=== PATIENT | male | born 1945 | race Caucasian/White ===

== ENCOUNTER → 2017-09-09 | Outpatient (CLI) | payer BC ==
[~2017-09-09] MED LIST: AMLODIPINE BESY10 MG PO; ASPIRIN81 MG PO; COQ-10100 MG PO; CRESTOR10 MG PO; GLIMEPIRIDE2 MG PO; HYDROCODON-ACE1 EA10; IOPAMIDOL 370 MG/ML 200 ML INFUS..BTL INJ ONE; LANSOPRAZOLE30 MG; LISINOPRIL40 MG PO; LOSARTAN POTAS100 MG PO; NIACIN500 MG; PLAVIX75 MG PO; RANEXA500 MG PO; SODIUM CHLORIDE 0.9% 250ML 500 ML ONE; SODIUM CHLORIDE 0.9% 50ML 50 ML ONE; SYMBICORT 16010.2 GM INH; TOPROL XL25 MG PO; VITAMIN E400 UNI1; XARELTO20 MG PEG
[2017-09-09 10:17] LABS: CREATININE, SERUM 1.32 mg/dL (0.72-1.25)
--- NOTE | 2017-09-09 12:38 | Diagnostic Imaging Report ---
PROCEDURE:CT CHEST WITHOUT CONTRAST COMPARISON:[facility], CT, CT ABDOMEN/PELVIS WO, 03/16/2017, 13:28. [facility], CT, CT CHEST W, 11/15/2013, 18:55. INDICATIONS:LOW DOSE NODULES TECHNIQUE:CT images were created without the administration of contrast material utilizing low dose CT chest protocol. DLP: 247.3 mGY-cm FINDINGS: LUNGS:Diffuse hyperinflation is re-demonstrated with fibrotic changes in apical to basilar gradient. There has been some progression of the fibrosis compared to previous exam. Nodules: Right lung: Smoothly marginated noncalcified nodule in the base of the right lower lobe measures 1.4 x 1.4 cm (in 2014, 1.3 cm; in 2017, 1.4 x 1.4 cm (personal measurements)). No satellite nodules. Groundglass subpleural focus in the posterior upper lobe is new (image 39) and measures 5 mm. Left lung: There are calcified granulomata throughout. Subpleural calcified nodule in the anterobasal segment of the left lower lobe measures 8 x 7 mm and is stable. Calcified granulomata along the major fissure are stable. Two pleural nodules in the upper lobe (images 22 and 21) measure up to 2 mm and are stable. Airways: Mild cylindrical bronchiectasis and mild bronchial wall thickening suggestive of chronic bronchitis. The airways are patent. VASCULATURE:The aorta is ectatic with diffuse atherosclerotic calcifications. The ascending aorta measures 4.2 x 3.8 cm (previously 3.6 x 3.6 cm). The descending thoracic aorta measures 4.0 x 4.0 cm (previously, 3.7 x 3.7 cm). The main pulmonary artery measures 2.3 cm in diameter. MEDIASTINUM/JUAN MIGUEL:Calcified mediastinal and hilar lymph nodes are present. Noncalcified mediastinal lymph nodes are increased in number but stable in appearance. The esophagus is normal. CARDIAC:Cardiac bypass changes are stable. Pacemaker wires terminate in the right atrium and right ventricle. No pericardial effusion. PLEURA:No pleural thickening or pleural effusion. A tiny pleural calcification in the left upper lobe is stable. CHEST WALL:No axillary lymphadenopathy. Visualized portion of the thyroid gland is normal. LIMITED ABDOMEN:Visualized portions demonstrate calcifications throughout the liver and spleen. There are diverticula in the left colon. A stent in the suprarenal abdominal aorta is incompletely imaged. Low attenuating lesion in the right kidney is stable and suggestive of a cyst. This measures approximately 3 cm. BONES:Median sternotomy is well healed. There degenerative changes of the spine consistent with age. Fusion plate in the lower cervical spine is incompletely imaged but within normal limits. No compression deformities. There are no lytic or blastic lesions. CONCLUSION: 1. Noncalcified nodule the base of the right lower lobe is stable to 1 mm larger since 2014. Continued annual or biennial surveillance is recommended. 2. Mild progression of pulmonary fibrosis, particularly at the lung bases. 3. New noncalcified nodule in the right upper lobe may be inflammatory. 4. Healed granulomatous inflammation. Noncalcified mediastinal lymph nodes are stable. 5. Thoracic aortic aneurysm measuring 4 cm in maximum diameter. Stable postoperative changes in the mediastinum. Aortic endograft in the suprarenal abdominal aorta. Dictated by: Brandi Padilla M.D. on 09/09/2017 at 12:39 Electronically approved by: Brandi Padilla M.D. on 09/09/2017 at 12:39
--- NOTE | 2017-09-09 12:45 | Diagnostic Imaging Report ---
EXAM: CTA Abdomen and Pelvis WITH AND WITHOUT CONTRAST. DATE: 09/09/2017 9:54 AM INDICATION: Aneurysm COMPARISON: 03/16/2017 and 06/04/2015 CT scans TECHNIQUE: CT angiogram of the abdomen and pelvis was obtained before and after the administration of IV contrast. Prospective gating was performed. Images reviewed in the axial, coronal, and sagittal planes. 3D reconstructions performed on off-line workstation. IV Contrast: 100 mL Isovue-370. Total DLP: 1257 mGy*cm Est. Eff. Dose DLP x 0.015 x size factor mSv (CTDIvol has been reviewed and is below limits set by [facility]). FINDINGS: VASCULAR: Abdominal Aorta Mesenteric Segment: 27 mm. Abdominal Aorta Just Below Renal Arteries: 25 mm. Mid Infrarenal Abdominal Aorta: Excluded aneurysmal sac 45 mm with 26 mm enhanced luminal diameter. Abdominal Aortal at Bifurcation: Excluded aneurysmal sac 50 mm. Postsurgical change: Stable endovascular stent in the mesenteric/renal aorta. Stable aortobiiliac stent. Grafts are patent. No endoleak identified. When measured in similar location, no change in excluded aneurysm sac. Mesenteric Arteries: Mild narrowing origin celiac trunk and SMA. Dual right and single left renal arteries patent. 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 Common iliac arteries: Patent. Internal Iliac Arteries: Advanced atherosclerotic changes and diminutive size limits evaluation. Abdomen: Lung Bases: Septal thickening. 14 mm nodule right lung base stable. Granuloma left lung base stable. Solid Organs: Hepatic and splenic granulomata. Perinephric stranding presumed senescent. Renal cyst again noted. Remainder of solid organs unremarkable. Upper GI Tract: Gastric decompression limits adequate evaluation. No small bowel obstructive changes. Lymph Nodes: No suspicious adenopathy. Other: None. Pelvis: Bladder: Unremarkable. Other: Heterogeneous prostate with coarse calcifications. Prostate enlarged 58 mm. Colon: Scattered diverticula with no CT evidence of diverticulitis. Appendix not inflamed. Bones: Degenerative changes spine. IMPRESSION: 1. Patent stent within the mesenteric/renal aorta and stable aortobiiliac stent graft. No occlusion. 2. Stable excluded aneurysmal sac in the infrarenal abdominal aorta with no evidence of endoleak. 3. Enlarged heterogeneous prostate. Clinical and laboratory correlation recommended. 4. Diverticulosis. 5. 14 mm nodule right lung base, stable. 6. Septal thickening lung bases, which can be seen in the setting of volume overload. 7. Evidence of prior granulomatous disease. Signed by: Dr. Malik Tripathi MD on 09/09/2017 12:41 PM
== END ==
LOC: CT 09:38
PROVIDERS: ATTEND Family Medicine
DX: I72.2 Aneurysm of renal artery (principal); R10.84 Generalized abdominal pain; R91.1 Solitary pulmonary nodule; Z87.891 Personal history of nicotine dependence
CPT/HCPCS: 36415; 71250; 74174; 82565; 84520; J7050; Q9967

== ENCOUNTER 2018-03-18 10:45 | Observation (INO) | payer BC ==
[2018-03-17 13:01] LABS: BASOPHILS # (AUTO) 0.1 (0.0-0.1); BASOPHILS % 0.8 % (0.0-1.0); EOSINOPHILS # (AUTO) 0.2 (0.0-0.4); HEMATOCRIT 38.5 % (38.2-49.6); HEMOGLOBIN 12.3 g/dL (14.0-18.0); LYMPHOCYTES # (AUTO) 2.1 (1.0-3.2); LYMPHOCYTES % 32.1 % (18.0-39.1); MEAN CORPUSCULAR HEMOGLOBIN 25.7 pg (28-32); MEAN CORPUSCULAR HGB CONC 31.9 g/dL (31-35); MEAN CORPUSCULAR VOLUME 80.5 fL (81-99); MONOCYTES # (AUTO) 0.6 (0.2-0.8); MONOCYTES % 8.8 % (4.4-11.3); NEUTROPHILS # (AUTO) 3.6 (2.1-6.9); NEUTROPHILS % 54.8 % (38.7-80.0); PLATELET COUNT 197 x10e3/uL (140-360); RED BLOOD COUNT 4.78 x10e6/uL (4.3-5.7); RED CELL DISTRIBUTION WIDTH 16.1 % (11.7-14.4)
[2018-03-17 13:23] LABS: ALBUMIN 3.7 g/dL (3.5-5.0); CALCIUM 9.5 mg/dL (8.4-10.2); CREATININE, SERUM 1.32 mg/dL (0.72-1.25)
[~2018-03-18] VITALS: Ht 172.7 cm; Wt 94.9 kg
[2018-03-18] VITALS (13 sets, daily range): BP systolic 122–180; BP diastolic 63–94
[~2018-03-18 10:45] MED LIST changes: +HEPARIN SOD/SOD CHLORIDE 2,000 ML ONE; +LIDOCAINE HCL 2% LOCAL 20 ML VIAL ONE; +SODIUM CHLORIDE 0.9% 1000ML 1,000 ML ONE; -SODIUM CHLORIDE 0.9% 250ML 500 ML ONE; -SODIUM CHLORIDE 0.9% 50ML 50 ML ONE; -XARELTO20 MG PEG; +XARELTO20 MG PO
[2018-03-18] MEDS ORDERED: METOPROLOL SUCC50 MG PO (11:53)
[2018-03-18] MEDS ORDERED: GABAPENTIN300 MG PO (11:53)
[2018-03-18] MEDS ORDERED: CLOPIDOGREL75 MG PO (11:53)
[2018-03-18] MEDS ORDERED: TAMSULOSIN HCL0.4 MG PO (11:53)
[2018-03-18] MEDS ORDERED: ISOSORBIDE MONO30 MG PO (11:53)
[2018-03-18] MEDS ORDERED: LANSOPRAZOLE30 MG PO (11:53)
[2018-03-18] MEDS ORDERED: MULTIVITAMINS1 EAC8 PO (11:53)
[2018-03-18] MEDS ORDERED: FENTANYL CITRATE/PF 100MCG/2 ML INJ ONE (12:50)
[2018-03-18] MEDS ORDERED: MIDAZOLAM HCL 2 MG/2 ML VIAL ONE ×2 (12:50→13:07)
[2018-03-18] MEDS ORDERED: DIPHENHYDRAMINE HCL 25 MG CAP ONE (13:08)
[2018-03-18] MEDS ORDERED: ALPRAZOLAM 0.5 MG TAB ONE (13:08)
[2018-03-18] MEDS ORDERED: NITROGLYCERIN/D5W 200 MCG/ML 250 ML ONE (13:29)
[2018-03-18] MEDS ORDERED: HEPARIN SOD (PORCINE) 1000 UNIT/ML 30ML ONE (13:29)
[2018-03-18] MEDS ORDERED: IOPAMIDOL 370 MG/ML 200 ML INFUS..BTL INJ ONE ×2 (13:31→13:59)
[2018-03-18] MEDS ORDERED: TICAGRELOR 90 MG TABLET ONE (13:49)
[2018-03-18] MEDS ORDERED: SODIUM CHLORIDE 0.9% 1000ML 1,000 ML ONE (14:06)
[2018-03-18] MEDS ORDERED: MORPHINE SULFATE 2 MG/ML SYR ONE ×2 (14:38→17:47)
[2018-03-18] MEDS ORDERED: ATROPINE SULFATE 0.1 MG/ML 10ML SYR ONE (18:04)
[2018-03-19] VITALS: BP 172/82
[2018-03-19] MEDS ORDERED: DEXTROSE 50% SYRINGE 50 ML IV PRN (03:30)
[2018-03-19 04:00] VITALS: BP 180/84
[2018-03-19 08:11] VITALS: BP 166/87
[2018-03-19 08:20] VITALS: BP 166/87
[2018-03-19] MEDS ORDERED: ASPIRIN 325 MG TAB PO SCH (09:00)
[2018-03-19] MEDS ORDERED: TICAGRELOR 90 MG TABLET PO SCH (09:00)
[2018-03-19] MEDS ORDERED: ASPIRIN 81 MG ENTERIC COATED PO SCH (09:00)
[2018-03-19] MEDS ORDERED: ASPIR 8181 MG PO (10:03)
[2018-03-19] MEDS ORDERED: INSULIN REGULAR, HUMAN 100 UNIT/1 ML 3ML VIAL SQ SCH (11:30)
--- OUTSIDE RECORDS SUMMARY | 2018-03-30 10:37 | XMS REPORT | Summary of Care ---
Author Author [facility] Organization [facility] Address Unknown Phone Unavailable Encounter ARNALDO Bourne(OLENA) [id number] Date(s): 11/19/16 - 11/20/16 [facility] [address] [place] [address]- Discharge Disposition: Home or Self Care Attending Physician: Chuck Clark MD Admitting Physician: Chuck Clark MD Referring Physician: Chuck Clark MD Vital Signs 1 2 3 Most recent to oldest [Reference Range]: 175.26 cm (11/17/16 10:46 AM) Height 98.1 DegF (11/20/16 8:00 AM) 98 DegF (11/20/16 4:00 AM) 97.9 DegF (11/20/16 12:00 AM) Temperature Oral [96.4-99.1 DegF] 147/79 mmHg *HI* (11/20/16 8:00 AM) 144/60 mmHg *HI* (11/20/16 4:00 AM) 142/63 mmHg *HI* (11/20/16 12:00 AM) Blood Pressure [90-140/60-90 mmHg] 20 BRMIN (11/20/16 8:00 AM) 20 BRMIN (11/20/16 4:00 AM) 20 BRMIN (11/20/16 12:00 AM) Respiratory Rate [14-20 BRMIN] 86 bpm (11/20/16 8:00 AM) 82 bpm (11/20/16 4:00 AM) 70 bpm (11/20/16 12:00 AM) Peripheral Pulse Rate [60-100 bpm] 94.591 kg (11/17/16 10:46 AM) Weight 30.8 m2 (11/17/16 10:46 AM) Body Mass Index Problem List Condition Effective Dates Status Health Status Informant AP (angina Active pectoris)(Confirmed) CAD (coronary artery Active disease)(Confirmed) Diabetes(Confirmed) Active SOB (shortness of Active breath)(Confirmed) H/O sinus Resolved tachycardia(Confirme d) Jaw pain, Active non-TMJ(Confirmed) Apnea, Active sleep(Confirmed) Allergies, Adverse Reactions, Alerts Substance Reaction Severity Status NKDA Active Medications ATTN RN please bring pt home med to pharmacy to be labeled ATTN RN please bring pt home med to pharmacy to be labeled, ATTN RN, Drug form: MISC, Route: MISC, QSHIFT, 11/18/16 16:00:00 CDT, Duration: 30 day, Stop date: 12/18/16 8:00:00 CDT Start Date: 11/18/16 Stop Date: 11/20/16 Status: Discontinued acetaminophen-codeine #3 1 tab, Route: PO, Drug Form: TAB, Dosing Weight 94.591, kg, Q4H, PRN Pain Score 4-6, Start date: 11/19/16 14:41:00 CDT, Duration: 30 day, Stop date: 12/19/16 14 :40:00 CDT Notes: Do not exceed 4gm/day of acetaminophen. (Same as: Tylenol with Codeine # 3) Start Date: 11/19/16 Stop Date: 11/20/16 Status: Discontinued acetaminophen-hydrocodone 325 mg-5 mg oral tablet 1 tab, Route: PO, Drug Form: TAB, Dosing Weight 94.591, kg, Q4H, PRN Pain Score 4-6, Start date: 11/18/16 8:32:00 CDT, Duration: 30 day, Stop date: 12/18/16 8:3 1:00 CDT Notes: (Same as: [place] 325/5) Do not exceed 4gm/day of acetaminophen. Start Date: 11/18/16 Stop Date: 11/20/16 Status: Discontinued amLODIPine 10 mg, 2 tab, Route: PO, Drug form: TAB, Daily, Dosing Weight 94.591, kg, Start date: 11/18/16 9:00:00 CDT, Duration: 30 day, Stop date: 12/17/16 9:00:00 CDT Notes: (Same as: Norvasc) Start Date: 11/18/16 Stop Date: 11/20/16 Status: Discontinued amLODIPine 10 mg oral tablet 10 mg=1 tab, PO, Daily, # 30 tab, 0 Refill(s) Start Date: 11/17/16 Status: Ordered aspirin 81 mg tablet, enteric coated 81 mg, 1 tab, Route: PO, Drug form: ECTAB, Daily, Dosing Weight 94.591, kg, Star t date: 11/18/16 9:00:00 CDT, Duration: 30 day, Stop date: 12/17/16 9:00:00 CDT Notes: Do not crush or chew.(Same As: Ecotrin) Start Date: 11/18/16 Stop Date: 11/20/16 Status: Discontinued aspirin 81 mg tablet, enteric coated 81 mg=1 tab, PO, Daily, # 90 tab, 3 Refill(s) Start Date: 11/17/16 Status: Ordered ceFAZolin 1 gm, 100 mL, Route: IVPB, Drug form: INJ, Q8H, Dosing Weight 94.591, kg, Start date: 11/19/16 21:00:00 CDT, Duration: 1 doses or times, Stop date: 11/19/16 21: 00:00 CDT, ABX Indication: Surgical Prophylaxis Start Date: 11/19/16 Stop Date: 11/19/16 Status: Completed clopidogrel 75 mg oral tablet 75 mg=1 tab, PO, Daily, # 30 tab, 0 Refill(s) Start Date: 11/20/16 Status: Ordered CoQ10 300 mg, PO, Daily, 0 Refill(s) Start Date: 11/17/16 Status: Ordered Crestor 40 mg, 2 tab, Route: PO, Drug form: TAB, Bedtime, Dosing Weight 94.591, kg, Star t date: 11/18/16 21:00:00 CDT, Duration: 30 day, Stop date: 12/17/16 21:00:00 CD T Notes: Same as Crestor Start Date: 11/18/16 Stop Date: 11/20/16 Status: Discontinued Crestor 20 mg oral tablet 20 mg=1 tab, PO, Bedtime, # 30 tab, 0 Refill(s) Start Date: 11/17/16 Stop Date: 11/20/16 Status: Discontinued Crestor 40 mg oral tablet 40 mg=1 tab, PO, Bedtime, # 30 tab, 1 Refill(s) Start Date: 11/20/16 Status: Ordered Crestor 40 mg oral tablet 40 mg=1 tab, PO, Bedtime, # 30 tab, 0 Refill(s) Start Date: 11/18/16 Stop Date: 11/20/16 Status: Discontinued Dextrose 50% Syringe 25 gm, 50 mL, Route: IVP, Drug Form: INJ, Dosing Weight 94.591, kg, PRN, PRN Blo od Glucose Results, Start date: 11/18/16 18:04:00 CDT, Duration: 30 day, Stop da te: 12/18/16 18:03:00 CDT Start Date: 11/18/16 Stop Date: 11/20/16 Status: Discontinued Dextrose 50% Syringe 12.5 gm, 25 mL, Route: IVP, Drug Form: INJ, Dosing Weight 94.591, kg, PRN, PRN B lood Glucose Results, Start date: 11/18/16 18:04:00 CDT, Duration: 30 day, Stop date: 12/18/16 18:03:00 CDT Start Date: 11/18/16 Stop Date: 11/20/16 Status: Discontinued Dilaudid 1 mg, 1 mL, Route: IVP, Drug form: INJ, Q3H, Dosing Weight 94.591, kg, PRN Pain Score 7-10, Start date: 11/18/16 8:35:00 CDT, Duration: 30 day, Stop date: 12/18 8:34:00 CDT Start Date: 11/18/16 Stop Date: 11/20/16 Status: Discontinued glimepiride 2 mg, Route: PO, Drug form: TAB, Daily, Dosing Weight 94.591, kg, Start date: 9:00:00 CDT, Duration: 30 day, Stop date: 12/17/16 9:00:00 CDT Start Date: 11/18/16 Stop Date: 11/18/16 Status: Deleted glimepiride 2 mg oral tablet 2 mg=1 tab, PO, Daily, 0 Refill(s) Start Date: 11/17/16 Status: Ordered glucagon 1 mg, Route: IM, Drug form: PDR/INJ, PRN, Dosing Weight 94.591, kg, PRN Blood Gl ucose Results, Start date: 11/18/16 18:04:00 CDT, Duration: 30 day, Stop date: 0 12/18/16 18:03:00 CDT Start Date: 11/18/16 Stop Date: 11/20/16 Status: Discontinued Glucotrol 10 mg, 1 tab, Route: PO, Drug form: TAB, Daily, Start date: 11/19/16 9:00:00 CDT , Duration: 30 day, Stop date: 12/18/16 9:00:00 CDT Notes: (Same as: Glucotrol) 30 min before meals. Start Date: 11/19/16 Stop Date: 11/20/16 Status: Discontinued insulin aspart 1 unit, 0.01 mL, Route: SUB-Q, Drug form: SOLN, TID-Before Meals, Dosing Weight 94.591, kg, PRN Blood Glucose Results, Start date: 11/18/16 18:04:00 CDT, Durati on: 30 day, Stop date: 12/18/16 18:03:00 CDT Notes: Roll in palms of hands gently; Do not shake vigorously. (Same as: NovoCHARISSE G)"single patient use only"WASTE: F/P - Black; E - Municipal Trash Bin Stable f or 28 days at room temperature.Expires in days from Date Start Date: 11/18/16 Stop Date: 11/20/16 Status: Discontinued insulin aspart 5 unit, 0.05 mL, Route: SUB-Q, Drug form: SOLN, TID-Before Meals, Dosing Weight 94.591, kg, PRN Blood Glucose Results, Start date: 11/18/16 18:04:00 CDT, Durati on: 30 day, Stop date: 12/18/16 18:03:00 CDT Notes: Roll in palms of hands gently; Do not shake vigorously. (Same as: NovoLO G)"single patient use only"WASTE: F/P - Black; E - Municipal Trash Bin Stable f or 28 days at room temperature.Expires in days from Date Start Date: 11/18/16 Stop Date: 11/20/16 Status: Discontinued insulin aspart 2 unit, 0.02 mL, Route: SUB-Q, Drug form: SOLN, TID-Before Meals, Dosing Weight 94.591, kg, PRN Blood Glucose Results, Start date: 11/18/16 18:04:00 CDT, Durati on: 30 day, Stop date: 12/18/16 18:03:00 CDT Notes: Roll in palms of hands gently; Do not shake vigorously. (Same as: Manav Cutler)"single patient use only"WASTE: F/P - Black; E - Municipal Trash Bin Stable f or 28 days at room temperature.Expires in days from Date Start Date: 11/18/16 Stop Date: 11/20/16 Status: Discontinued insulin aspart 4 unit, 0.04 mL, Route: SUB-Q, Drug form: SOLN, TID-Before Meals, Dosing Weight 94.591, kg, PRN Blood Glucose Results, Start date: 11/18/16 18:04:00 CDT, Durati on: 30 day, Stop date: 12/18/16 18:03:00 CDT Notes: Roll in palms of hands gently; Do not shake vigorously. (Same as: Manav Cutler)"single patient use only"WASTE: F/P - Black; E - Municipal Trash Bin Stable f or 28 days at room temperature.Expires in days from Date Start Date: 11/18/16 Stop Date: 11/20/16 Status: Discontinued insulin aspart 3 unit, 0.03 mL, Route: SUB-Q, Drug form: SOLN, TID-Before Meals, Dosing Weight 94.591, kg, PRN Blood Glucose Results, Start date: 11/18/16 18:04:00 CDT, Durati on: 30 day, Stop date: 12/18/16 18:03:00 CDT Notes: Roll in palms of hands gently; Do not shake vigorously. (Same as: Manav Cutler)"single patient use only"WASTE: F/P - Black; E - Municipal Trash Bin Stable f or 28 days at room temperature.Expires in days from Date Start Date: 11/18/16 Stop Date: 11/20/16 Status: Discontinued isosorbide mononitrate 30 mg, 1 tab, Route: PO, Drug form: ERTAB, QAM, Dosing Weight 94.591, kg, Start date: 11/18/16 9:00:00 CDT, Duration: 30 day, Stop date: 12/17/16 9:00:00 CDT Notes: (Same as:Chris)"Do Not Crush" Take on empty stomach/ full glass of water . Do not crush Start Date: 11/18/16 Stop Date: 11/20/16 Status: Discontinued isosorbide mononitrate 30 mg oral tablet, extended release 30 mg=1 tab, PO, QAM, # 30 tab, 0 Refill(s) Start Date: 11/17/16 Status: Ordered lamsoprazole lamsoprazole, See Instructions, Refill(s) 0 Start Date: 11/17/16 Status: Ordered losartan 100 mg, 2 tab, Route: PO, Drug form: TAB, Daily, Dosing Weight 94.591, kg, Start date: 11/18/16 9:00:00 CDT, Duration: 30 day, Stop date: 12/17/16 9:00:00 CDT Notes: (Same as: Manuel) Start Date: 11/18/16 Stop Date: 11/20/16 Status: Discontinued losartan 100 mg oral tablet 100 mg=1 tab, PO, Daily, # 30 tab, 0 Refill(s) Start Date: 11/17/16 Status: Ordered metoprolol tartrate 50 mg, 1 tab, Route: PO, Drug form: TAB, Q12H, Dosing Weight 94.591, kg, Start d ate: 11/18/16 9:00:00 CDT, Duration: 30 day, Stop date: 12/17/16 21:00:00 CDT Notes: (Same as: Lopressor) Start Date: 11/18/16 Stop Date: 11/19/16 Status: Discontinued metoprolol tartrate 50 mg oral tablet 50 mg=1 tab, PO, BID, 0 Refill(s) Start Date: 11/17/16 Stop Date: 11/19/16 Status: Discontinued minocycline 100 mg, 2 cap, Route: PO, Drug form: CAP, [id number], Dosing Weight 94.591, kg, Sta rt date: 11/20/16 9:00:00 CDT, Duration: 7 day, Stop date: 11/26/16 21:00:00 CDT Notes: (Same as:Minocin) No milk/antacids/iron. Start Date: 11/20/16 Stop Date: 11/20/16 Status: Discontinued morphine Sulfate 4 mg, 1 mL, Route: IVP, Drug form: SOLN, Q2H, Dosing Weight 94.591, kg, PRN Pain Score 7-10, Start date: 11/18/16 8:32:00 CDT, Duration: 30 day, Stop date: 11/29 8:31:00 CDT Notes: (Same as:MORPhine Sulfate) Start Date: 11/18/16 Stop Date: 11/18/16 Status: Discontinued nitroglycerin See Instructions, 0 Refill(s) Start Date: 11/17/16 Status: Ordered nitroglycerin SL Tab 0.4 mg, 1 tab, Route: SL, Drug form: TAB, Q5Min, Dosing Weight 94.591, kg, PRN C hest Pain, Start date: 11/18/16 8:32:00 CDT, Duration: 3 doses or times, Stop da te: Limited # of times Notes: (Same as:Nitroquick, Nitrostat)"Do Not Crush" Sublingual tablet Start Date: 11/18/16 Stop Date: 11/20/16 Status: Discontinued Plavix 75 mg, 1 tab, Route: PO, Drug form: TAB, Daily, Dosing Weight 94.591, kg, Start date: 11/18/16 9:00:00 CDT, Duration: 30 day, Stop date: 12/17/16 9:00:00 CDT Notes: (Same As: Plavix) Start Date: 11/18/16 Stop Date: 11/20/16 Status: Discontinued pneumococcal 13-valent vaccine 0.5 mL, Route: IM, Drug Form: INJ, Daily, Start date: 11/19/16 9:00:00 CDT, Dura tion: 1 doses or times, Stop date: 11/19/16 9:00:00 CDT Notes: Shake well prior to use (Same as: Peter 13) Start Date: 11/19/16 Stop Date: 11/19/16 Status: Completed Ranexa 500 mg oral tablet, extended release 500 mg, 1 tab, Route: PO, Drug form: TAB, BID, Dosing Weight 94.591, kg, Start d ate: 11/18/16 9:00:00 CDT, Duration: 30 day, Stop date: 12/17/16 17:00:00 CDT Notes: Same as Ranexa"Do Not Crush" Start Date: 11/18/16 Stop Date: 11/20/16 Status: Discontinued Ranexa 500 mg oral tablet, extended release 500 mg=1 tab, PO, BID, # 60 tab, 0 Refill(s) Start Date: 11/17/16 Status: Ordered sodium chloride 0.9% 1000 ml INJ 750 mL 750 mL, Rate: 75 ml/hr, Infuse over: 10 hr, Route: IV, Dosing Weight 94.591 kg, Total Volume: 750, Start date: 11/18/16 8:32:00 CDT, Duration: 10 hr, Stop date: 11/18/16 18:31:00 CDT Start Date: 11/18/16 Stop Date: 11/18/16 Status: Completed temazepam 15 mg, 1 cap, Route: PO, Drug form: CAP, Bedtime, Dosing Weight 94.591, kg, PRN Insomnia, Start date: 11/18/16 8:32:00 CDT, Duration: 30 day, Stop date: 7 8:31:00 CDT Notes: (Same As: Restoril) Start Date: 11/18/16 Stop Date: 11/20/16 Status: Discontinued Toprol-XL 50 mg oral tablet, extended release 50 mg=1 tab, PO, Daily, # 30 tab, 1 Refill(s), other Start Date: 11/20/16 Status: Ordered ubiquinone 300 mg, Route: PO, Daily, Dosing Weight 94.591, kg, Start date: 11/18/16 9:00:00 CDT, Duration: 30 day, Stop date: 12/17/16 9:00:00 CDT Start Date: 11/18/16 Stop Date: 11/20/16 Status: Discontinued Xarelto 20 mg oral tablet 20 mg=1 tab, PO, QPM, *LAST DOSE 11/15/16*, # 30 tab, 3 Refill(s) Start Date: 11/17/16 Status: Ordered Results ELECTROLYTES Most recent to 1 2 oldest [Reference Range]: Sodium Lvl [135-145 141 mEq/L 137 mEq/L mEq/L] (11/19/16 1:06 PM) (11/17/16 10:52 AM) Potassium Lvl 3.9 mEq/L 4.1 mEq/L [3.5-5.1 mEq/L] (11/19/16 1:06 PM) (11/17/16 10:52 AM) Chloride Lvl [95-109 107 mEq/L 103 mEq/L mEq/L] (11/19/16 1:06 PM) (11/17/16 10:52 AM) CO2 [24-32 mEq/L] 29 mEq/L 26 mEq/L (11/19/16 1:06 PM) (11/17/16 10:52 AM) AGAP [10.0-20.0 8.9 mEq/L 12.1 mEq/L mEq/L] *LOW* (11/17/16 10:52 AM) (11/19/16 1:06 PM) CHEM PANEL Most recent to 1 2 oldest [Reference Range]: Creatinine Lvl 1.10 mg/dL 1.30 mg/dL [0.50-1.40 mg/dL] (11/19/16 1:06 PM) (11/17/16 10:52 AM) eGFR 68 mL/min/1.73m2 1 55 mL/min/1.73m2 2 *NA* *NA* (11/19/16 1:06 PM) (11/17/16 10:52 AM) BUN [7-22 mg/dL] 21 mg/dL 21 mg/dL (11/19/16 1:06 PM) (11/17/16 10:52 AM) B/C Ratio [6-25] 16 (11/17/16 10:52 AM) Glucose Lvl [70-99 160 mg/dL 274 mg/dL mg/dL] *HI* *HI* (11/19/16 1:06 PM) (11/17/16 10:52 AM) Total Protein 7.5 g/dL [6.4-8.4 g/dL] (11/17/16 10:52 AM) Albumin Lvl [3.5-5.0 3.4 g/dL g/dL] *LOW* (11/17/16 10:52 AM) Globulin [2.7-4.2 4.1 g/dL g/dL] (11/17/16 10:52 AM) A/G Ratio [0.7-1.6] 0.8 (11/17/16 10:52 AM) Calcium Lvl 9.1 mg/dL 8.8 mg/dL [8.5-10.5 mg/dL] (11/19/16 1:06 PM) (11/17/16 10:52 AM) ALT [0-65 unit/L] 24 unit/L (11/17/16 10:52 AM) AST [0-37 unit/L] 13 unit/L (11/17/16 10:52 AM) Alk Phos [39-136 78 unit/L unit/L] (11/17/16 10:52 AM) Bili Total [0.2-1.3 0.6 mg/dL mg/dL] (11/17/16 10:52 AM) 1Result Comment: The eGFR is calculated using the CKD-EPI formula. In most young, healthy individuals the eGFR will be >90 mL/min/1.73m2. The eGFR declines with age. An eGFR of 60-89 may be normal in some populations, particularly the elderly, for whom the CKD-EPI formula has not been extensively validated. Use of the eGFR is not recommended in the following populations: Individuals with unstable creatinine concentrations, including patients and those with serious co-morbid conditions. Patients with extremes in muscle mass or diet. The data above are obtained from the National Kid[employer] Disease Education Program ( NK[employer]) which additionally recommends that when the eGFR is used in patients with extremes of body mass index for purposes of drug dosing, the eGFR should be mul tiplied by the estimated BMI. 2Result Comment: The eGFR is calculated using the CKD-EPI formula. In most young, healthy individuals the eGFR will be >90 mL/min/1.73m2. The eGFR declines with age. An eGFR of 60-89 may be normal in some populations, particularly the elderly, for whom the CKD-EPI formula has not been extensively validated. Use of the eGFR is not recommended in the following populations: Individuals with unstable creatinine concentrations, including patients and those with serious co-morbid conditions. Patients with extremes in muscle mass or diet. The data above are obtained from the National Kidney Disease Education Program ( NKDEP) which additionally recommends that when the eGFR is used in patients with extremes of body mass index for purposes of drug dosing, the eGFR should be mul tiplied by the estimated BMI. HEMATOLOGY Most recent to 1 2 oldest [Reference Range]: WBC [3.7-10.4 K/CMM] 8.4 K/CMM 8.0 K/CMM (11/19/16 1:06 PM) (11/17/16 10:52 AM) RBC [4.70-6.10 4.78 M/CMM 4.78 M/CMM M/CMM] (11/19/16 1:06 PM) (11/17/16 10:52 AM) Hgb [14.0-18.0 g/dL] 12.5 g/dL 12.6 g/dL *LOW* *LOW* (11/19/16 1:06 PM) (11/17/16 10:52 AM) Hct [42.0-54.0 %] 38.3 % 38.5 % *LOW* *LOW* (11/19/16 1:06 PM) (11/17/16 10:52 AM) MCV [80.0-94.0 fL] 80.2 fL 80.5 fL (11/19/16 1:06 PM) (11/17/16 10:52 AM) MCH [27.0-31.0 pg] 26.2 pg 26.4 pg *LOW* *LOW* (11/19/16 1:06 PM) (11/17/16 10:52 AM) MCHC [32.0-36.0 32.7 g/dL 32.8 g/dL g/dL] (11/19/16 1:06 PM) (11/17/16 10:52 AM) RDW [11.5-14.5 %] 16.1 % 15.6 % *HI* *HI* (11/19/16 1:06 PM) (11/17/16 10:52 AM) Platelet [133-450 213 K/CMM 222 K/CMM K/CMM] (11/19/16 1:06 PM) (11/17/16 10:52 AM) MPV [7.4-10.4 fL] 9.4 fL 9.5 fL (11/19/16 1:06 PM) (11/17/16 10:52 AM) Segs [45.0-75.0 %] 61.4 % 65.3 % (11/19/16 1:06 PM) (11/17/16 10:52 AM) Lymphocytes 26.7 % 24.3 % [20.0-40.0 %] (11/19/16 1:06 PM) (11/17/16 10:52 AM) Monocytes [2.0-12.0 9.0 % 7.5 % %] (11/19/16 1:06 PM) (11/17/16 10:52 AM) Eosinophils [0.0-4.0 2.3 % 1.9 % %] (11/19/16 1:06 PM) (11/17/16 10:52 AM) Basophils [0.0-1.0 0.6 % 1.0 % %] (11/19/16 1:06 PM) (11/17/16 10:52 AM) Segs-Bands # 5.1 K/CMM 5.2 K/CMM [1.5-8.1 K/CMM] (11/19/16 1:06 PM) (11/17/16 10:52 AM) Lymphocytes # 2.2 K/CMM 1.9 K/CMM [1.0-5.5 K/CMM] (11/19/16 1:06 PM) (11/17/16 10:52 AM) Monocytes # [0.0-0.8 0.8 K/CMM 0.6 K/CMM K/CMM] (11/19/16 1:06 PM) (11/17/16 10:52 AM) Eosinophils # 0.2 K/CMM 0.1 K/CMM [0.0-0.5 K/CMM] (11/19/16 1:06 PM) (11/17/16 10:52 AM) Basophils # [0.0-0.2 0.1 K/CMM 0.1 K/CMM K/CMM] (11/19/16 1:06 PM) (11/17/16 10:52 AM) PT [12.0-14.7 13.5 seconds seconds] (11/19/16 1:06 PM) INR [0.85-1.17] 1.01 (11/19/16 1:06 PM) Immunizations Given and Recorded Vaccine Date Status Refusal Reason pneumococcal 13-valent vaccine 11/19/16 Given Procedures Procedure Date Related Diagnosis Body Site Aortic aneurysm repair1 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
--- OUTSIDE RECORDS SUMMARY | 2018-03-30 10:37 | XMS REPORT ---
Author Author [facility] Address Unknown Phone Unavailable Care Team Providers Care Radio Talk Show Host Name Role Phone CLAUDIA GONZALEZ Unavailable Unavailable Problems This patient has no known problems. Allergies, Adverse Reactions, Alerts This patient has no known allergies or adverse reactions. Medications This patient has no known medications. Results Test Description Test Time Test Comments Text Results Atomic Results Result Comments CT CHEST WO [place] [address] Patient Name: GILBERT HERMAN MR #: [id number] : 1945 Age/Sex: 72/M Req #: [id number] Adm Physician: Ordered by: CLAUDIA GONZALEZ DO Report #: [id number] Location: CT Room/Bed: Procedure: [id number] CT/CT CHEST WO Exam Date: 09/09/17 Exam Time: 1101 REPORT STATUS: Signed PROCEDURE: CT CHEST WITHOUT CONTRAST COMPARISON: [facility], CT, CT ABDOMEN/PELVIS WO, 03/16/2017, 13:28. [facility], CT, CT CHEST W, 11/15/2013, 18:55. INDICATIONS: LOW DOSE NODULES TECHNIQUE: CT images were created without the administration of contrast material utilizing low dose CT chest protocol. DLP: 247.3 mGY-cm FINDINGS: LUNGS: Diffuse hyperinflation is re-demonstrated with fibrotic changes in apical to basilar gradient. There has been some progression of the fibrosis compared to previous exam. Nodules: Right lung: Smoothly marginated noncalcified nodule in the base of the right lower lobe measures 1.4 x 1.4 cm (in 2014, 1.3 cm; in 2017, 1.4 x 1.4 cm (personal measurements)). No satellite nodules. Groundglass subpleural focus in the posterior upper lobe is new (image 39) and measures 5 mm. Left lung: There are calcified granulomata throughout. Subpleural calcified nodule in the anterobasal segment of the left lower lobe measures 8 x 7 mm and is stable. Calcified granulomata along the major fissure are stable. Two pleural nodules in the upper lobe (images 22 and 21) measure up to 2 mm and are stable. Airways: Mild cylindrical bronchiectasis and mild bronchial wall thickening suggestive of chronic bronchitis. The airways are patent. VASCULATURE: The aorta is ectatic with diffuse atherosclerotic calcifications. The ascending aorta measures 4.2 x 3.8 cm (previously 3.6 x 3.6 cm). The descending thoracic aorta measures 4.0 x 4.0 cm (previously, 3.7 x 3.7 cm). The main pulmonary artery measures 2.3 cm in diameter. MEDIASTINUM/JUAN MIGUEL: Calcified mediastinal and hilar lymph nodes are present. Noncalcified mediastinal lymph nodes are increased in number but stable in appearance. The esophagus is normal. CARDIAC: Cardiac bypass changes are stable. Pacemaker wires terminate in the right atrium and right ventricle. No pericardial effusion. PLEURA: No pleural thickening or pleural effusion. A tiny pleural calcification in the left upper lobe is stable. CHEST WALL: No axillary lymphadenopathy. Visualized portion of the thyroid gland is porter l. LIMITED ABDOMEN: Visualized portions demonstrate calcifications throughout the liver and spleen. There are diverticula in the left colon. A stent in the suprarenal abdominal aorta is incompletely imaged. Low attenuating lesion in the right kidney is stable and suggestive of a cyst. This measures approximately 3 cm. BONES: Median sternotomy is well healed. There degenerative changes of the spine consistent with age. Fusion plate in the lower cervical spine is incompletely imaged but within normal limits. No compression deformities. There are no lytic or blastic lesions. CONCLUSION: 1. Noncalcified nodule the base of the right lower lobe is stable to 1 mm larger since 2014. Continued annual or biennial surveillance is recommended. 2. Mild progression of pulmonary fibrosis, particularly at the lung bases. 3. New noncalcified nodule in the right upper lobe may be inflammatory. 4. Healed granulomatous inflammation. Noncalcified mediastinal lymph nodes are stable. 5. Thoracic aortic aneurysm measuring 4 cm in maximum diameter. Stable postoperative changes in the mediastinum. Aortic endograft in the suprarenal abdominal aorta. Dictated by: Walter Padilla M.D. on 09/09/2017 at 12:39 Electronically approved by: Walter Padilla M.D. on 09/09/2017 at 12:39 Dictated By: WALTER PADILLA MD 1239 Transcribed By: NITIN on 09/09/17 1239 COPY TO: CLAUDIA GONZALEZ DO CTA ABD/PELVIS [place] [address] Patient Name: GILBERT HERMAN MR #: [id number] : 1945 Age/Sex: 72/M Req #: [id number] Adm Physician: Ordered by: CLAUDIA GONZALEZ DO Report #: [id number] Location: CT Room/Bed: Procedure: [id number] CT/CTA ABD/PELVIS Exam Date: 09/09/17 Exam Time: 1101 REPORT STATUS: Signed EXAM: CTA Abdomen and Pelvis WITH AND WITHOUT CONTRAST. DATE: 09/09/2017 9:54 AM INDICATION: Aneurysm COMPARISON: 03/16/2017 and 06/04/2015 CT scans TECHNIQUE: CT angiogram of the abdomen and pelvis was obtained before and after the administration of IV contrast. Prospective gating was performed. Images reviewed in the axial, coronal, and sagittal planes. 3D reconstructions performed on off-line workstation. IV Contrast: 100 mL Isovue-370. Total DLP: 1257 mGy*cm Est. Eff. Dose DLP x 0.015 x size factor mSv (CTDIvol has been reviewed and is below limits set by [facility]). FINDINGS: VASCULAR: Abdominal Aorta Mesenteric Segment: 27 mm. Abdominal Aorta Just Below Renal Arteries: 25 mm. Mid Infrarenal Abdominal Aorta: Excluded aneurysmal sac 45 mm with 26 mm enhanced luminal diameter. Abdominal Aortal at Bifurcation: Excluded aneurysmal sac 50 mm. Postsurgical change: Stable endovascular stent in the mesenteric/renal aorta. Stable aortobiiliac stent. Grafts are patent. No endoleak identified. When measured in similar location, no change in excluded aneurysm sac. Mesenteric Arteries: Mild narrowing origin celiac trunk and SMA. Dual right and single left renal arteries patent. 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 Common iliac arteries: Patent. Internal Iliac Arteries: Advanced atherosclerotic changes and diminutive size limits evaluation. Abdomen: Lung Bases: Septal thickening. 14 mm nodule right lung base stable. Granuloma left lung base stable. Solid Organs: Hepatic and splenic granulomata. Perinephric stranding presumed senescent. Renal cyst again noted. Remainder of solid organs unremarkable. Upper GI Tract: Gastric decompression limits adequate evaluation. No small bowel obstru ctive changes. Lymph Nodes: No suspicious adenopathy. Other: None. Pelvis: Bladder: Unremarkable. Other: Heterogeneous prostate with coarse calcifications. Prostate enlarged 58 mm. Colon: Scattered diverticula with no CT evidence of diverticulitis. Appendix not inflamed. Bones: Degenerative changes spine. IMPRESSION: 1. Patent stent within the mesenteric/renal aorta and stable aortobiiliac stent graft. No occlusion. 2. Stable excluded aneurysmal sac in the infrarenal abdominal aorta with no evidence of endoleak. 3. Enlarged heterogeneous prostate. Clinical and laboratory correlation recommended. 4. Diverticulosis. 5. 14 mm nodule right lung base, stable. 6. Septal thickening lung bases, which can be seen in the setting of volume overload. 7. Evidence of prior granulomatous disease. Signed by: Dr. Malik Tripathi MD on 09/09/2017 12:41 PM Dictated By: MALIK TRIPATHI MD 1241 Transcribed By: REYNALDO on 09/09/17 1241 COPY TO: CLAUDIA GONZALEZ DO CT ABDOMEN/PELVIS WO [facility] [address] [place] [address] Patient Name: GILBERT HERMAN MR #: [id number] : 1945 Age/Sex: 71/M Req #: [id number] Adm Physician: Ordered by: CLAUDIA GONZALEZ DO Report #: [id number] Location: CT Room/Bed: Procedure: [id number] CT/CT ABDOMEN/PELVIS WO Exam Date: 03/16/17 Exam Time: 1328 REPORT STATUS: Signed PROCEDURE: CT ABDOMEN AND PELVIS WITHOUT CONTRAST TECHNIQUE: The abdomen and pelvis were scanned utilizing a multidetector helical scanner from the diaphragm to the lesser trochanter. No oral or intravenous contrast was administered per renal stone protocol. Coronal and sagittal multiplanar reformations were obtained. COMPARISON: CTA of the abdomen 12/09/2016. INDICATIONS: STONE PROTOCOL FINDINGS: ABSENCE OF INTRAVENOUS CONTRAST DECREASES SENSITIVITY FOR DETECTION OF FOCAL LESIONS AND VASCULAR PATHOLOGY. LOWER THORAX: 1.5 cm nodule in the medial aspect of the right lung base is unchanged. Large juxtapleural calcified granuloma in the left lower lobe. Groundglass and reticular opacities in the lung bases are unchanged and may reflect age-related fibrotic changes. implantable cardiac device leads are again noted.. HEPATOBILIARY: Innumerable calcified granulomata scattered throughout the liver. Gallbladder is unremarkable. SPLEEN: Innumerable calcified granulomata throughout the spleen without splenomegaly. PANCREAS: The pancreas is unremarkable, without focal mass or ductal dilatation. ADRENALS: No adrenal nodules. KIDNEYS/URETERS: One of the previously described left lower pole renal calculi has migrated into the mid ureter, resulting in mild hydronephrosis and perinephric-periureteral inflammatory change. The calculus measures 5 mm in diameter. Unchanged appearance of 5-6 mm nonobstructing left lower pole renal calculus. Exophytic cyst is again noted projecting from the right kidney. No additional renal, ureteral, or bladder calculi. Exophytic right upper pole renal cyst is also unchanged. PELVIC ORGANS/BLADDER: The urinary bladder is incompletely distended but otherwise unremarkable. Multiple coarse prostatic calcifications. Seminal vesicles appear normal. Multiple pelvic phleboliths. PERITONEUM / RETROPERITONEUM: No ascites. No pneumoperitoneum. LYMPH NODES: No pelvic sidewall, retroperitoneal, or mesenteric lymphadenopathy VESSELS: Limited evaluation without intravenous contrast. Postsurgical changes related to prior endovascular repair of abdominal aortic aneurysm. Scattered foci of atherosclerotic calcification. GI TRACT: The large bowel shows no distention or wall thickening. There are scattered sigmoid and descending colon diverticula without evidence of diverticulitis. the appendix is normal. The stomach is collapsed with prominence of the rugal folds. No small bowel dilatation to suggest obstruction. BONES AND SOFT TISSUES: No focal soft tissue abnormalities. No osseous destructive lesions. Multilevel degenerative disc changes and degenerative facet arthropathy of the lumbar spine. Healed fracture deformities of the left 10th through 12th ribs. IMPRESSION: Interval migration of a 5 mm left lower pole renal calculus into the midportion of the ureter, resulting in mild hydroureteronephrosis and perinephric-periureteral inflammation. Unchanged second nonobstructing left lower pole calculus. Postsurgical changes related to endovascular repair of abnormal aortic aneurysm. 1.5 cm nodule in the medial segment of the right lower lobe is unchanged compared to the prior examination and may represent a noncalcified granuloma. As previously discussed, PET-CT may be of benefit for further characterization. Findings were discussed by telephone with Dr. Claudia Gonzalez at 2:00 PM 03/16/2017. Dictated by: Maverick Baxter M.D. on 03/16/2017 at 14:07 Electronically approved by: Maverick Baxter M.D. on 03/16/2017 at 14:07 Dictated By: MAVERICK BAXTER MD [id number] Transcribed By: NITIN on 03/16/17 6067 COPY TO: CLAUDIA GONZALEZ DO
--- OUTSIDE RECORDS SUMMARY | 2018-03-30 10:37 | XMS REPORT | Continuity of Care Document ---
Author Author [facility] Interface Address Unknown Phone Unavailable Problems Problem Status Onset Date Classification Date Reported Comments Source UNK Active 11/14/2016 [facility] CAD Active 11/14/2016 [facility] AP (<span ID="[id number]">Confirmed</span>) Active Problem 11/23/2016 [facility] CAD (<span ID="[id number]">Confirmed</span>) Active Problem 11/23/2016 [facility] Diabetes Active Problem 11/23/2016 [facility] SOB (<span ID="[id number]">Confirmed</span>) Active Problem 11/23/2016 [facility] H/O sinus tachycardia Resolved Problem 11/23/2016 [facility] Jaw pain, non-TMJ Active Problem 11/23/2016 [facility] Apnea, sleep Active Problem 11/23/2016 [facility] ATHSCL HEART DISEASE OF [place] CORONARY Active [facility] Medications Medication Details Route Status Patient Instructions Ordering Provider Order Date Source clopidogrel 75 mg oral tablet 75 mg=1 tab, PO, Daily, # 30 tab, 0 Refill(s) Active 11/20/2016 [facility] 24 HR Metoprolol Tartrate 50 MG Extended Release Tablet [Toprol] 50 mg=1 tab, PO, Daily, # 30 tab, 1 Refill(s), other Active 11/20/2016 [facility] Rosuvastatin calcium 40 MG Oral Tablet [Crestor] 40 mg=1 tab, PO, Bedtime, # 30 tab, 1 Refill(s) Active 11/20/2016 [facility] Minocycline 100 mg, 2 cap, Route: PO, Drug form: CAP, [id number], Dosing Weight 94.591, kg, Start date: 11/20/16 9:00:00 CDT, Duration: 7 day, Stop date: 11/26/16 21:00:00 CDTNotes: (Same as:Minocin) No milk/antacids/iron. Inactive 11/20/2016 [facility] Cefazolin 1 gm, 100 mL, Route: IVPB, Drug form: INJ, Q8H, Dosing Weight 94.591, kg, Start date: 11/19/16 21:00:00 CDT, Duration: 1 doses or times, Stop date: 11/19/16 21:00:00 CDT, ABX Indication: Surgical Prophylaxis Inactive 11/20/2016 [facility] acetaminophen-codeine #3 1 tab, Route: PO, Drug Form: TAB, Dosing Weight 94.591, kg, Q4H, PRN Pain Score 4-6, Start date: 11/19/16 14:41:00 CDT, Duration: 30 day, Stop date: 12/19/16 14:40:00 CDTNotes: Do not exceed 4gm/day of acetaminophen. (Same as: Tylenol with Codeine # 3) No Longer Active 11/19/2016 [facility] Streptococcus pneumoniae serotype 1 capsular antigen diphtheria [id number] protein conjugate vaccine / Streptococcus pneumoniae serotype 14 capsular antigen diphtheria [id number] protein conjugate vaccine / Streptococcus pneumoniae serotype 18C capsular antigen d 0.5 mL, Route: IM, Drug Form: INJ, Daily, Start date: 11/19/16 9:00:00 CDT, Duration: 1 doses or times, Stop date: 11/19/16 9:00:00 CDTNotes: Shake well prior to use (Same as: Prevnar 13) Inactive 11/19/2016 [facility] Glucotrol 10 mg, 1 tab, Route: PO, Drug form: TAB, Daily, Start date: 11/19/16 9:00:00 CDT, Duration: 30 day, Stop date: 12/18/16 9:00:00 CDTNotes: (Same as: Glucotrol) 30 min before meals. No Longer Active 11/19/2016 [facility] Crestor 40 mg, 2 tab, Route: PO, Drug form: TAB, Bedtime, Dosing Weight 94.591, kg, Start date: 11/18/16 21:00:00 CDT, Duration: 30 day, Stop date: 12/17/16 21:00:00 CDTNotes: Same as Crestor No Longer Active 11/19/2016 [facility] Insulin, Aspart, Human 1 unit, 0.01 mL, Route: SUB-Q, Drug form: SOLN, TID-Before Meals, Dosing Weight 94.591, kg, PRN Blood Glucose Results, Start date: 11/18/16 18:04:00 CDT, Duration: 30 day, Stop date: 12/18/16 18:03:00 CDTNotes: Roll in palms of hands gently; Do not shake vigorously. (Same as: NovoLOG) "single patient use only" WASTE: F/P - Black; E - Municipal Trash Bin Stable for 28 days at room temperature. Expires in days from Date No Longer Active 11/18/2016 [facility] Glucagon 1 mg, Route: IM, Drug form: PDR/INJ, PRN, Dosing Weight 94.591, kg, PRN Blood Glucose Results, Start date: 11/18/16 18:04:00 CDT, Duration: 30 day, Stop date: 12/18/16 18:03:00 CDT No Longer Active 11/18/2016 [facility] Dextrose 50% Syringe 25 gm, 50 mL, Route: IVP, Drug Form: INJ, Dosing Weight 94.591, kg, PRN, PRN Blood Glucose Results, Start date: 11/18/16 18:04:00 CDT, Duration: 30 day, Stop date: 12/18/16 18:03:00 CDT No Longer Active 11/18/2016 [facility] ATTN RN please bring pt home med to pharmacy to be labeled ATTN RN please bring pt home med to pharmacy to be labeled, ATTN RN, Drug form: MISC, Route: MISC, QSHIFT, 11/18/16 16:00:00 CDT, Duration: 30 day, Stop date: 12/18/16 8:00:00 CDT No Longer Active 11/18/2016 [facility] Plavix 75 mg, 1 tab, Route: PO, Drug form: TAB, Daily, Dosing Weight 94.591, kg, Start date: 11/18/16 9:00:00 CDT, Duration: 30 day, Stop date: 12/17/16 9:00:00 CDTNotes: (Same As: Plavix) No Longer Active 11/18/2016 [facility] ubiquinone 300 mg, Route: PO, Daily, Dosing Weight 94.591, kg, Start date: 11/18/16 9:00:00 CDT, Duration: 30 day, Stop date: 12/17/16 9:00:00 CDT No Longer Active 11/18/2016 [facility] 12 HR ranolazine 500 MG Extended Release Tablet [Ranexa] 500 mg, 1 tab, Route: PO, Drug form: TAB, BID, Dosing Weight 94.591, kg, Start date: 11/18/16 9:00:00 CDT, Duration: 30 day, Stop date: 12/17/16 17:00:00 CDTNotes: Same as Ranexa "Do Not Crush" No Longer Active 11/18/2016 [facility] metoprolol tartrate 50 mg, 1 tab, Route: PO, Drug form: TAB, Q12H, Dosing Weight 94.591, kg, Start date: 11/18/16 9:00:00 CDT, Duration: 30 day, Stop date: 12/17/16 21:00:00 CDTNotes: (Same as: Lopressor) No Longer Active 11/18/2016 [facility] Losartan 100 mg, 2 tab, Route: PO, Drug form: TAB, Daily, Dosing Weight 94.591, kg, Start date: 11/18/16 9:00:00 CDT, Duration: 30 day, Stop date: 12/17/16 9:00:00 CDTNotes: (Same as: Cozaar) No Longer Active 11/18/2016 [facility] Isosorbide 30 mg, 1 tab, Route: PO, Drug form: ERTAB, QAM, Dosing Weight 94.591, kg, Start date: 11/18/16 9:00:00 CDT, Duration: 30 day, Stop date: 12/17/16 9:00:00 CDTNotes: (Same as:Imdur) "Do Not Crush" Take on empty stomach/ full glass of water. Do not crush No Longer Active 11/18/2016 [facility] glimepiride 2 mg, Route: PO, Drug form: TAB, Daily, Dosing Weight 94.591, kg, Start date: 11/18/16 9:00:00 CDT, Duration: 30 day, Stop date: 12/17/16 9:00:00 CDT Inactive 11/18/2016 [facility] aspirin 81 mg tablet, enteric coated 81 mg, 1 tab, Route: PO, Drug form: ECTAB, Daily, Dosing Weight 94.591, kg, Start date: 11/18/16 9:00:00 CDT, Duration: 30 day, Stop date: 12/17/16 9:00:00 CDTNotes: Do not crush or chew. (Same As: Ecotrin) No Longer Active 11/18/2016 [facility] Amlodipine 10 mg, 2 tab, Route: PO, Drug form: TAB, Daily, Dosing Weight 94.591, kg, Start date: 11/18/16 9:00:00 CDT, Duration: 30 day, Stop date: 12/17/16 9:00:00 CDTNotes: (Same as: Norvasc) No Longer Active 11/18/2016 [facility] Dilaudid 1 mg, 1 mL, Route: IVP, Drug form: INJ, Q3H, Dosing Weight 94.591, kg, PRN Pain Score 7-10, Start date: 11/18/16 8:35:00 CDT, Duration: 30 day, Stop date: 12/18/16 8:34:00 CDT No Longer Active 11/18/2016 [facility] Temazepam 15 mg, 1 cap, Route: PO, Drug form: CAP, Bedtime, Dosing Weight 94.591, kg, PRN Insomnia, Start date: 11/18/16 8:32:00 CDT, Duration: 30 day, Stop date: 12/18/16 8:31:00 CDTNotes: (Same As: Restoril) No Longer Active 11/18/2016 [facility] Morphine 4 mg, 1 mL, Route: IVP, Drug form: SOLN, Q2H, Dosing Weight 94.591, kg, PRN Pain Score 7-10, Start date: 11/18/16 8:32:00 CDT, Duration: 30 day, Stop date: 12/18/16 8:31:00 CDTNotes: (Same as:MORPhine Sulfate) Inactive 11/18/2016 [facility] Nitroglycerin 0.4 mg, 1 tab, Route: SL, Drug form: TAB, Q5Min, Dosing Weight 94.591, kg, PRN Chest Pain, Start date: 11/18/16 8:32:00 CDT, Duration: 3 doses or times, Stop date: Limited # of timesNotes: (Same as:Makeda sargentoqutera, Nitrostat) "Do Not Crush" Sublingual tablet No Longer Active 11/18/2016 [facility] Acetaminophen 325 MG / Hydrocodone Bitartrate 5 MG Oral Tablet 1 tab, Route: PO, Drug Form: TAB, Dosing Weight 94.591, kg, Q4H, PRN Pain Score 4-6, Start date: 11/18/16 8:32:00 CDT, Duration: 30 day, Stop date: 12/18/16 8:31:00 CDTNotes: (Same as: [place] 325/5) Do not exceed 4gm/day of acetaminophen. No Longer Active 11/18/2016 [facility] Sodium Chloride 0.154 MEQ/ML Injectable Solution 750 mL, Rate: 75 ml/hr, Infuse over: 10 hr, Route: IV, Dosing Weight 94.591 kg, Total Volume: 750, Start date: 11/18/16 8:32:00 CDT, Duration: 10 hr, Stop date: 11/18/16 18:31:00 CDT Inactive 11/18/2016 [facility] Rosuvastatin calcium 40 MG Oral Tablet [Crestor] 40 mg=1 tab, PO, Bedtime, # 30 tab, 0 Refill(s) No Longer Active 11/18/2016 [facility] CoQ10 300 mg, PO, Daily, 0 Refill(s) Active 11/17/2016 [facility] glimepiride 2 mg oral tablet 2 mg=1 tab, PO, Daily, 0 Refill(s) Active 11/17/2016 [facility] Nitroglycerin See Instructions, 0 Refill(s) Active 11/17/2016 [facility] aspirin 81 mg tablet, enteric coated 81 mg=1 tab, PO, Daily, # 90 tab, 3 Refill(s) Active 11/17/2016 [facility] metoprolol tartrate 50 mg oral tablet 50 mg=1 tab, PO, BID, 0 Refill(s) No Longer Active 11/17/2016 [facility] losartan 100 mg oral tablet 100 mg=1 tab, PO, Daily, # 30 tab, 0 Refill(s) Active 11/17/2016 [facility] lamsoprazole lamsoprazole, See Instructions, Refill(s) 0 Active 11/17/2016 [facility] amLODIPine 10 mg oral tablet 10 mg=1 tab, PO, Daily, # 30 tab, 0 Refill(s) Active 11/17/2016 [facility] Rosuvastatin calcium 20 MG Oral Tablet [Crestor] 20 mg=1 tab, PO, Bedtime, # 30 tab, 0 Refill(s) No Longer Active 11/17/2016 [facility] 12 HR ranolazine 500 MG Extended Release Tablet [Ranexa] 500 mg=1 tab, PO, BID, # 60 tab, 0 Refill(s) Active 11/17/2016 [facility] rivaroxaban 20 MG Oral Tablet [Xarelto] 20 mg=1 tab, PO, QPM, *LAST DOSE 11/15/16*, # 30 tab, 3 Refill(s) Active 11/17/2016 [facility] isosorbide mononitrate 30 mg oral tablet, extended release 30 mg=1 tab, PO, QAM, # 30 tab, 0 Refill(s) Active 11/17/2016 [facility] Allergies, Adverse Reactions, Alerts Substance Category Reaction Severity Reaction type Status Date Reported Comments Source Immunizations Immunization Date Given Site Status Last Updated Comments Source pneumococcal 13-valent vaccine 11/19/2016 Left deltoid completed [place] Results Order Name Results Value Reference Range Date Interpretation Comments Source Chest 2 views DX Chest 2 views DX Patient Name: GILBERT HERMAN : 1945; Age: 71 years y/o Male MR: [id number] * CHEST, 2 views HISTORY: Status post PPM/ICD Implantation COMPARISON: Yesterday TECHNIQUE: Frontal and lateral radiographs of the chest were obtained. IMPRESSION: 1. There is a left subclavian dual-lead transvenous pacemaker. The appearance is stable. There is no evidence of pneumothorax or other complication following placement. 2. No acute process. The lungs are clear. There are no pleural effusions. It is made of a small calcified granuloma in the left lower lobe. 3. Mild cardiomegaly without overt failure. 4. Without atherosclerotic calcifications involving the thoracic aorta. 5. There are mild scattered degenerative changes involving the thoracic spine. The regional skeleton is otherwise unremarkable. SL: [id number] 11/20/2016 - - Read by: Wallace Pérez MD Dictated Date/time: 11/20/16 11:57 Electronically Signed by: Wallace Pérez MD 11/20/16 11:58 FINAL REPORT [facility] CHEM PANEL eGFR 68 mL/min/1.73m2 11/19/2016 Result Comment: The eGFR is calculated using the [...] from the National Kidney Disease Education Program (NKDEP) which additionally recommends that when the eGFR is used in patients with extremes of body mass index for purposes of drug dosing, the eGFR should be multiplied by the estimated BMI. [facility] CHEM PANEL Sodium Lvl 141 meq/L 135 - 145 11/19/2016 [facility] CHEM PANEL Creatinine Lvl 1.10 mg/dL 0.50 - 1.40 11/19/2016 [facility] CHEM PANEL BUN 21 mg/dL 7 - 22 11/19/2016 [facility] CHEM PANEL Glucose Lvl 160 mg/dL 70 - 99 11/19/2016 [facility] CHEM PANEL CO2 29 meq/L 24 - 32 11/19/2016 [facility] CHEM PANEL Calcium Lvl 9.1 mg/dL 8.5 - 10.5 11/19/2016 [facility] CHEM PANEL Chloride Lvl 107 meq/L 95 - 109 11/19/2016 [facility] CHEM PANEL Potassium Lvl 3.9 meq/L 3.5 - 5.1 11/19/2016 [facility] CHEM PANEL AGAP 8.9 meq/L 10.0 - 20.0 11/19/2016 [facility] HEMATOLOGY INR 1.01 0.85 - 1.17 11/19/2016 [facility] HEMATOLOGY PT 13.5 s 12.0 - 14.7 11/19/2016 [facility] HEMATOLOGY WBC 8.4 K/CMM 3.7 - 10.4 11/19/2016 [facility] HEMATOLOGY MCH 26.2 pg 27.0 - 31.0 11/19/2016 [facility] MCV 80.2 fL 80.0 - 94.0 11/19/2016 [facility] RBC 4.78 M/CMM 4.70 - 6.10 11/19/2016 [facility] Hct 38.3 % 42.0 - 54.0 11/19/2016 [facility] Hgb 12.5 g/dL 14.0 - 18.0 11/19/2016 [facility] RDW 16.1 % 11.5 - 14.5 11/19/2016 [facility] MCHC 32.7 g/dL 32.0 - 36.0 11/19/2016 [facility] MPV 9.4 fL 7.4 - 10.4 11/19/2016 [facility] Platelet 213 K/CMM 133 - 450 11/19/2016 [facility] Lymphocytes 26.7 % 20.0 - 40.0 11/19/2016 [facility] Segs 61.4 % 45.0 - 75.0 11/19/2016 [facility] Basophils # 0.1 K/CMM 0.0 - 0.2 11/19/2016 [facility] Monocytes 9.0 % 2.0 - 12.0 11/19/2016 [facility] Monocytes # 0.8 K/CMM 0.0 - 0.8 11/19/2016 [facility] Eosinophils # 0.2 K/CMM 0.0 - 0.5 11/19/2016 [facility] Basophils 0.6 % 0.0 - 1.0 11/19/2016 [facility] Eosinophils 2.3 % 0.0 - 4.0 11/19/2016 [facility] Lymphocytes # 2.2 K/CMM 1.0 - 5.5 11/19/2016 [facility] Segs-Bands # 5.1 K/CMM 1.5 - 8.1 11/19/2016 [facility] Chest 1 v for Placement DX Chest 1 v for Placement DX Patient Name: GILBERT HERMAN : 1945; Age: 71 years y/o Male MR: [id number] Study: Chest 1 v for Placement DX dated 11/19/2016. Clinical Indication: Line Placement - Status post PPM/ICD Implantation; Comparison: None Left transvenous pacer in place with one lead in the expected region of the right atrium and one lead in the expected region of the right ventricle. Patient is status post median sternotomy. Enlarged cardiac silhouette. Aortic calcification. Mediastinal structures otherwise unremarkable. Small benign calcified nodule seen in the lateral left lung base. No focal infiltrate within the lungs, no edema and no pneumothorax. Patient is status post prior cervical spine surgery. Decreased right acromiohumeral distance suggests changes of chronic right rotator cuff tear. Degenerative changes seen about the right acromioclavicular joint and right glenohumeral joint. SL: [id number] 11/19/2016 - - Read by: Eduardo Sheridan MD Dictated Date/time: 11/19/16 17:16 Electronically Signed by: Eduardo Sheridan MD 11/19/16 17:18 FINAL REPORT [facility] CHEM PANEL A/G Ratio 0.8 0.7 - 1.6 11/17/2016 [facility] CHEM PANEL Globulin 4.1 g/dL 2.7 - 4.2 11/17/2016 [facility] CHEM PANEL B/C Ratio 16 6 - 25 11/17/2016 [facility] CHEM PANEL AGAP 12.1 meq/L 10.0 - 20.0 11/17/2016 [facility] CHEM PANEL eGFR 55 mL/min/1.73m2 11/17/2016 Result Comment: The eGFR is calculated using the [...] from the National Kidney Disease Education Program (NKDEP) which additionally recommends that when the eGFR is used in patients with extremes of body mass index for purposes of drug dosing, the eGFR should be multiplied by the estimated BMI. [facility] CHEM PANEL Total Protein 7.5 g/dL 6.4 - 8.4 11/17/2016 [facility] CHEM PANEL Albumin Lvl 3.4 g/dL 3.5 - 5.0 11/17/2016 [facility] CHEM PANEL ALT 24 unit/L 0 - 65 11/17/2016 [facility] CHEM PANEL Alk Phos 78 unit/L 39 - 136 11/17/2016 [facility] CHEM PANEL Bili Total 0.6 mg/dL 0.2 - 1.3 11/17/2016 [facility] CHEM PANEL AST 13 unit/L 0 - 37 11/17/2016 [facility] CHEM PANEL CO2 26 meq/L 24 - 32 11/17/2016 [facility] CHEM PANEL Chloride Lvl 103 meq/L 95 - 109 11/17/2016 [facility] CHEM PANEL Calcium Lvl 8.8 mg/dL 8.5 - 10.5 11/17/2016 [facility] CHEM PANEL BUN 21 mg/dL 7 - 22 11/17/2016 [facility] CHEM PANEL Sodium Lvl 137 meq/L 135 - 145 11/17/2016 [facility] CHEM PANEL Potassium Lvl 4.1 meq/L 3.5 - 5.1 11/17/2016 [facility] CHEM PANEL Glucose Lvl 274 mg/dL 70 - 99 11/17/2016 [facility] CHEM PANEL Creatinine Lvl 1.30 mg/dL 0.50 - 1.40 11/17/2016 [facility] HEMATOLOGY Platelet 222 K/CMM 133 - 450 11/17/2016 [facility] MPV 9.5 fL 7.4 - 10.4 11/17/2016 [facility] HEMATOLOGY RDW 15.6 % 11.5 - 14.5 11/17/2016 [facility] RBC 4.78 M/CMM 4.70 - 6.10 11/17/2016 [facility] HEMATOLOGY WBC 8.0 K/CMM 3.7 - 10.4 11/17/2016 [facility] MCHC 32.8 g/dL 32.0 - 36.0 11/17/2016 [facility] MCV 80.5 fL 80.0 - 94.0 11/17/2016 [facility] MCH 26.4 pg 27.0 - 31.0 11/17/2016 [facility] Hgb 12.6 g/dL 14.0 - 18.0 11/17/2016 [facility] Hct 38.5 % 42.0 - 54.0 11/17/2016 [facility] HEMATOLOGY Basophils # 0.1 K/CMM 0.0 - 0.2 11/17/2016 [facility] HEMATOLOGY Lymphocytes # 1.9 K/CMM 1.0 - 5.5 11/17/2016 [facility] HEMATOLOGY Monocytes # 0.6 K/CMM 0.0 - 0.8 11/17/2016 [facility] HEMATOLOGY Eosinophils # 0.1 K/CMM 0.0 - 0.5 11/17/2016 [facility] HEMATOLOGY Basophils 1.0 % 0.0 - 1.0 11/17/2016 [facility] HEMATOLOGY Segs-Bands # 5.2 K/CMM 1.5 - 8.1 11/17/2016 [facility] HEMATOLOGY Eosinophils 1.9 % 0.0 - 4.0 11/17/2016 [facility] HEMATOLOGY Segs 65.3 % 45.0 - 75.0 11/17/2016 [facility] HEMATOLOGY Monocytes 7.5 % 2.0 - 12.0 11/17/2016 [facility] HEMATOLOGY Lymphocytes 24.3 % 20.0 - 40.0 11/17/2016 [facility] Vital Signs Vital Sign Value Date Comments Source Systolic (mm Hg) 147 11/20/2016 [facility] Diastolic (mm Hg) 79 11/20/2016 [facility] Respitory Rate 20 11/20/2016 [facility] Heart Rate 86 11/20/2016 [facility] Temperature Oral (F) 98.1 F 11/20/2016 [facility] Respitory Rate 20 11/20/2016 [facility] Heart Rate 82 11/20/2016 [facility] Temperature Oral (F) 98 F 11/20/2016 [facility] Systolic (mm Hg) 144 11/20/2016 [facility] Diastolic (mm Hg) 60 11/20/2016 [facility] Temperature Oral (F) 97.9 F 11/20/2016 [facility] Heart Rate 70 11/20/2016 [facility] Systolic (mm Hg) 142 11/20/2016 [facility] Diastolic (mm Hg) 63 11/20/2016 [facility] Respitory Rate 20 11/20/2016 [facility] Height 175.26 cm 11/17/2016 [facility] BMI Calculated 30.8 11/17/2016 [facility] Weight 94.591 11/17/2016 [facility] Encounters Location Location Details Encounter Type Encounter Number Reason For Visit Attending Provider ADM Date DC Date Status Source [facility] Inpatient [id number] Chuck Amber 11/19/2016 11/20/2016 [facility] Procedures Procedure Code Date Perfomer Comments Source Aortic aneurysm repair<sup>1</sup> [id number] with sleeve [facility] CABG x 4 - Coronary artery bypass grafts x 4 [id number] [facility] Cardiac catheterization<sup>2</sup> [id number] 4 stents over 2 years [facility] Cervical arthrodesis<sup>3</sup> [id number] with plate [facility]
--- NOTE | 2018-05-17 08:05 | Operative Report ---
DATE OF PROCEDURE: March 18, 2018 INDICATIONS: Coronary artery disease, unstable angina and abnormal stress test. PROCEDURES PERFORMED 1. Left heart catheterization. 2. Selective coronary angiography. 3. Selective cannulation of one arterial and one venous bypass conduits. 4. Percutaneous coronary intervention to the circumflex artery. 5. Removal of right groin sheath under manual pressure. COMPLICATIONS: None. RECOMMENDATIONS: Staged intervention of the left subclavian artery. Access obtained in the right femoral artery. A 6-Serbian sheath was placed. Diagnostic coronary angiogram revealed 50% left main heavily calcified. Left anterior descending artery is occluded, and 95% stenosis in the midcircumflex artery with YUDELKA-II flow. Right coronary artery is completely occluded. Stents in the saphenous vein bypass to the right coronary artery widely patent. Left internal mammary artery was patent to the left anterior descending artery. However, 50% plus stenosis in the left subclavian artery was noted. A decision was made to intervene on the circumflex artery. The left main was cannulated using a XP 3.56-Serbian guiding catheter. A short wire was advanced across the lesion for support. A 2.5 x 16 mm [employer] Synergy stent was deployed at 20 atmospheres. Excellent end result. YUDELKA-II flow and zero percent residual stenosis. No complications. Right groin sheath was removed with manual pressure. Patient was discharged home same day. Job#: [id number] MAREK
[2018-05-27] MEDS ORDERED: JARDIANCE PO (11:17)
[2018-05-27] MEDS ORDERED: ALLOPURINOL300 MG PO (11:17)
== END 2018-03-19 10:23 | disposition home or self-care (01) ==
LOC: CATH LAB 10:45 → IMCU 18:37
PROVIDERS: ADMIT Internal Medicine Interventional Cardiology; ATTEND Internal Medicine Interventional Cardiology
DX: I25.700 Atherosclerosis of coronary artery bypass graft(s), unspecified, with unstable angina pectoris (principal); Z95.1 Presence of aortocoronary bypass graft; R94.39 Abnormal result of other cardiovascular function study; Z95.5 Presence of coronary angioplasty implant and graft; E11.22 Type 2 diabetes mellitus with diabetic chronic kidney disease; I13.11 Hypertensive heart and chronic kidney disease without heart failure, with stage 5 chronic kidney disease, or end stage renal disease; N18.6 End stage renal disease; E78.5 Hyperlipidemia, unspecified; I71.4 Abdominal aortic aneurysm, without rupture; Z01.812 Encounter for preprocedural laboratory examination; Z79.82 Long term (current) use of aspirin; Z79.84 Long term (current) use of oral hypoglycemic drugs; Z79.02 Long term (current) use of antithrombotics/antiplatelets; Z95.0 Presence of cardiac pacemaker; Z87.891 Personal history of nicotine dependence
CPT/HCPCS: 36415 ×3; 80053; 82948 ×2; 85025; 85347; 92928; 93455; C1769 ×2; C1874; G0378 ×2; J1644; J2001; J2250; J2270; J7030; Q9967; 92920

== ENCOUNTER → 2018-05-28 | Day surgery (SDC) | payer BC ==
[2018-05-27 11:19] LABS: BASOPHILS # (AUTO) 0.1 (0.0-0.1); BASOPHILS % 0.6 % (0.0-1.0); EOSINOPHILS # (AUTO) 0.2 (0.0-0.4); EOSINOPHILS % 2.2 % (0.0-6.0); HEMATOCRIT 35.5 % (38.2-49.6); HEMOGLOBIN 11.1 g/dL (14.0-18.0); LYMPHOCYTES # (AUTO) 2.1 (1.0-3.2); LYMPHOCYTES % 26.1 % (18.0-39.1); MEAN CORPUSCULAR HEMOGLOBIN 24.6 pg (28-32); MEAN CORPUSCULAR HGB CONC 31.3 g/dL (31-35); MEAN CORPUSCULAR VOLUME 78.5 fL (81-99); MONOCYTES # (AUTO) 0.9 (0.2-0.8); MONOCYTES % 11.3 % (4.4-11.3); NEUTROPHILS # (AUTO) 4.9 (2.1-6.9); NEUTROPHILS % 59.3 % (38.7-80.0); PLATELET COUNT 239 x10e3/uL (140-360); RED BLOOD COUNT 4.52 x10e6/uL (4.3-5.7); RED CELL DISTRIBUTION WIDTH 17.7 % (11.7-14.4)
[2018-05-27 11:49] LABS: ALANINE AMINOTRANSFERASE 19 IU/L (0-55); ALBUMIN 3.3 g/dL (3.5-5.0); ALBUMIN/GLOBULIN RATIO 0.8 (0.8-2.0); ALKALINE PHOSPHATASE 76 IU/L (40-150); ANION GAP 13.9 mmol/L (8-16); BLOOD UREA NITROGEN 22 mg/dL (7-26); BUN/CREATININE RATIO 19 (6-25); CALCIUM 9.5 mg/dL (8.4-10.2); CARBON DIOXIDE 22 mmol/L (22-29); CHLORIDE 104 mmol/L (98-107); CREATININE, SERUM 1.18 mg/dL (0.72-1.25); EST GLOMERULAR FILTRATION RATE > 60 ML/MIN (60-); GLUCOSE 240 mg/dL (74-118); POTASSIUM 3.9 mmol/L (3.5-5.1); SODIUM 136 mmol/L (136-145)
[2018-05-27 12:39] LABS: INR 0.95; PROTHROMBIN TIME 13.6 seconds (11.9-14.5)
[2018-05-28] VITALS (11 sets, daily range): BP systolic 136–157; BP diastolic 62–85
[~2018-05-28] VITALS: Ht 172.7 cm; Wt 95.3 kg
[~2018-05-28] MED LIST changes: +ALLOPURINOL300 MG PO; +ASPIR 8181 MG PO; +CLOPIDOGREL75 MG PO; +FENTANYL CITRATE/PF 100MCG/2 ML INJ ONE; +GABAPENTIN300 MG PO; +IOPAMIDOL 300MG/ML 100 ML INFUS..BTL IV ONE; -IOPAMIDOL 370 MG/ML 200 ML INFUS..BTL INJ ONE; +ISOSORBIDE MONO30 MG PO; +JARDIANCE PO; +LANSOPRAZOLE30 MG PO; +METOPROLOL SUCC50 MG PO; +MIDAZOLAM HCL 2 MG/2 ML VIAL ONE; +MULTIVITAMINS1 EAC8 PO; +PROTAMINE SULFATE 10 MG/ML 5 ML VIAL ONE; +SODIUM CHLORIDE 0.9% 100 ML 100 ML ONE; +TAMSULOSIN HCL0.4 MG PO
--- OUTSIDE RECORDS SUMMARY | 2018-05-28 10:20 | XMS REPORT | Continuity of Care Document ---
Author Author [facility] Interface Address Unknown Phone Unavailable Problems Problem Status Onset Date Classification Date Reported Comments Source UNK Active 11/14/2016 [facility] CAD Active 11/14/2016 [facility] AP (<span ID="[id number]">Confirmed</span>) Active Problem 11/23/2016 [facility] CAD (<span ID="[id number]">Confirmed</span>) Active Problem 11/23/2016 [facility] Diabetes Active Problem 11/23/2016 [facility] SOB (<span ID="[id number]">Confirmed</span>) Active Problem 11/23/2016 [facility] H/O sinus tachycardia Resolved Problem 11/23/2016 [facility] Jaw pain, non-TMJ Active Problem 11/23/2016 [facility] Apnea, sleep Active Problem 11/23/2016 [facility] ATHSCL HEART DISEASE OF [place] CORONARY Active [facility] Medications Medication Details Route Status Patient Instructions Ordering Provider Order Date Source clopidogrel 75 mg oral tablet 75 mg=1 tab, PO, Daily, # 30 tab, 0 Refill(s) Active 11/20/2016 [facility] 24 HR Metoprolol Tartrate 50 MG Extended Release Tablet [Toprol] 50 mg=1 tab, PO, Daily, # 30 tab, 1 Refill(s), other Active 11/20/2016 [facility] Rosuvastatin calcium 40 MG Oral Tablet [Crestor] 40 mg=1 tab, PO, Bedtime, # 30 tab, 1 Refill(s) Active 11/20/2016 [facility] Minocycline 100 mg, 2 cap, Route: PO, Drug form: CAP, [id number], Dosing Weight 94.591, kg, Start date: 11/20/16 9:00:00 CDT, Duration: 7 day, Stop date: 11/26/16 21:00:00 CDTNotes: (Same as:Minocin) No milk/antacids/iron. Inactive 11/20/2016 [facility] Cefazolin 1 gm, 100 mL, Route: IVPB, Drug form: INJ, Q8H, Dosing Weight 94.591, kg, Start date: 11/19/16 21:00:00 CDT, Duration: 1 doses or times, Stop date: 11/19/16 21:00:00 CDT, ABX Indication: Surgical Prophylaxis Inactive 11/20/2016 [facility] acetaminophen-codeine #3 1 tab, Route: PO, Drug Form: TAB, Dosing Weight 94.591, kg, Q4H, PRN Pain Score 4-6, Start date: 11/19/16 14:41:00 CDT, Duration: 30 day, Stop date: 12/19/16 14:40:00 CDTNotes: Do not exceed 4gm/day of acetaminophen. (Same as: Tylenol with Codeine # 3) No Longer Active 11/19/2016 [facility] Streptococcus pneumoniae serotype 1 capsular antigen diphtheria [id number] protein conjugate vaccine / Streptococcus pneumoniae serotype 14 capsular antigen diphtheria [id number] protein conjugate vaccine / Streptococcus pneumoniae serotype 18C capsular antigen d 0.5 mL, Route: IM, Drug Form: INJ, Daily, Start date: 11/19/16 9:00:00 CDT, Duration: 1 doses or times, Stop date: 11/19/16 9:00:00 CDTNotes: Shake well prior to use (Same as: Prevnar 13) Inactive 11/19/2016 [facility] Glucotrol 10 mg, 1 tab, Route: PO, Drug form: TAB, Daily, Start date: 11/19/16 9:00:00 CDT, Duration: 30 day, Stop date: 12/18/16 9:00:00 CDTNotes: (Same as: Glucotrol) 30 min before meals. No Longer Active 11/19/2016 [facility] Crestor 40 mg, 2 tab, Route: PO, Drug form: TAB, Bedtime, Dosing Weight 94.591, kg, Start date: 11/18/16 21:00:00 CDT, Duration: 30 day, Stop date: 12/17/16 21:00:00 CDTNotes: Same as Crestor No Longer Active 11/19/2016 [facility] Insulin, Aspart, Human 1 unit, 0.01 mL, [...] days from Date No Longer Active 11/18/2016 [facility] Glucagon 1 mg, Route: IM, Drug form: PDR/INJ, PRN, Dosing Weight 94.591, kg, PRN Blood Glucose Results, Start date: 11/18/16 18:04:00 CDT, Duration: 30 day, Stop date: 12/18/16 18:03:00 CDT No Longer Active 11/18/2016 [facility] Dextrose 50% Syringe 25 gm, 50 mL, Route: IVP, Drug Form: INJ, Dosing Weight 94.591, kg, PRN, PRN Blood Glucose Results, Start date: 11/18/16 18:04:00 CDT, Duration: 30 day, Stop date: 12/18/16 18:03:00 CDT No Longer Active 11/18/2016 [facility] ATTN RN please bring pt home med to pharmacy to be labeled ATTN RN please bring pt home med to pharmacy to be labeled, ATTN RN, Drug form: MISC, Route: MISC, QSHIFT, 11/18/16 16:00:00 CDT, Duration: 30 day, Stop date: 12/18/16 8:00:00 CDT No Longer Active 11/18/2016 [facility] Plavix 75 mg, 1 tab, Route: PO, Drug form: TAB, Daily, Dosing Weight 94.591, kg, Start date: 11/18/16 9:00:00 CDT, Duration: 30 day, Stop date: 12/17/16 9:00:00 CDTNotes: (Same As: Plavix) No Longer Active 11/18/2016 [facility] ubiquinone 300 mg, Route: PO, Daily, Dosing Weight 94.591, kg, Start date: 11/18/16 9:00:00 CDT, Duration: 30 day, Stop date: 12/17/16 9:00:00 CDT No Longer Active 11/18/2016 [facility] 12 HR ranolazine 500 MG Extended Release Tablet [Ranexa] 500 mg, 1 tab, Route: PO, Drug form: TAB, BID, Dosing Weight 94.591, kg, Start date: 11/18/16 9:00:00 CDT, Duration: 30 day, Stop date: 12/17/16 17:00:00 CDTNotes: Same as Ranexa "Do Not Crush" No Longer Active 11/18/2016 [facility] metoprolol tartrate 50 mg, 1 tab, Route: PO, Drug form: TAB, Q12H, Dosing Weight 94.591, kg, Start date: 11/18/16 9:00:00 CDT, Duration: 30 day, Stop date: 12/17/16 21:00:00 CDTNotes: (Same as: Lopressor) No Longer Active 11/18/2016 [facility] Losartan 100 mg, 2 tab, Route: PO, Drug form: TAB, Daily, Dosing Weight 94.591, kg, Start date: 11/18/16 9:00:00 CDT, Duration: 30 day, Stop date: 12/17/16 9:00:00 CDTNotes: (Same as: Cozaar) No Longer Active 11/18/2016 [facility] Isosorbide 30 mg, 1 tab, Route: PO, Drug form: ERTAB, QAM, Dosing Weight 94.591, kg, Start date: 11/18/16 9:00:00 CDT, Duration: 30 day, Stop date: 12/17/16 9:00:00 CDTNotes: (Same as:Imdur) "Do Not Crush" Take on empty stomach/ full glass of water. Do not crush No Longer Active 11/18/2016 [facility] glimepiride 2 mg, Route: PO, Drug form: TAB, Daily, Dosing Weight 94.591, kg, Start date: 11/18/16 9:00:00 CDT, Duration: 30 day, Stop date: 12/17/16 9:00:00 CDT Inactive 11/18/2016 [facility] aspirin 81 mg tablet, enteric coated 81 mg, 1 tab, Route: PO, Drug form: ECTAB, Daily, Dosing Weight 94.591, kg, Start date: 11/18/16 9:00:00 CDT, Duration: 30 day, Stop date: 12/17/16 9:00:00 CDTNotes: Do not crush or chew. (Same As: Ecotrin) No Longer Active 11/18/2016 [facility] Amlodipine 10 mg, 2 tab, Route: PO, Drug form: TAB, Daily, Dosing Weight 94.591, kg, Start date: 11/18/16 9:00:00 CDT, Duration: 30 day, Stop date: 12/17/16 9:00:00 CDTNotes: (Same as: Norvasc) No Longer Active 11/18/2016 [facility] Dilaudid 1 mg, 1 mL, Route: IVP, Drug form: INJ, Q3H, Dosing Weight 94.591, kg, PRN Pain Score 7-10, Start date: 11/18/16 8:35:00 CDT, Duration: 30 day, Stop date: 12/18/16 8:34:00 CDT No Longer Active 11/18/2016 [facility] Temazepam 15 mg, 1 cap, Route: PO, Drug form: CAP, Bedtime, Dosing Weight 94.591, kg, PRN Insomnia, Start date: 11/18/16 8:32:00 CDT, Duration: 30 day, Stop date: 12/18/16 8:31:00 CDTNotes: (Same As: Restoril) No Longer Active 11/18/2016 [facility] Morphine 4 mg, 1 mL, Route: IVP, Drug form: SOLN, Q2H, Dosing Weight 94.591, kg, PRN Pain Score 7-10, Start date: 11/18/16 8:32:00 CDT, Duration: 30 day, Stop date: 12/18/16 8:31:00 CDTNotes: (Same as:MORPhine Sulfate) Inactive 11/18/2016 [facility] Nitroglycerin 0.4 mg, 1 tab, Route: SL, Drug form: TAB, Q5Min, Dosing Weight 94.591, kg, PRN Chest Pain, Start date: 11/18/16 8:32:00 CDT, Duration: 3 doses or times, Stop date: Limited # of timesNotes: (Same as:Makeda sargentoqutera, Nitrostat) "Do Not Crush" Sublingual tablet No Longer Active 11/18/2016 [facility] Acetaminophen 325 MG / Hydrocodone Bitartrate 5 MG Oral Tablet 1 tab, Route: PO, Drug Form: TAB, Dosing Weight 94.591, kg, Q4H, PRN Pain Score 4-6, Start date: 11/18/16 8:32:00 CDT, Duration: 30 day, Stop date: 12/18/16 8:31:00 CDTNotes: (Same as: [place] 325/5) Do not exceed 4gm/day of acetaminophen. No Longer Active 11/18/2016 [facility] Sodium Chloride 0.154 MEQ/ML Injectable Solution 750 mL, Rate: 75 ml/hr, Infuse over: 10 hr, Route: IV, Dosing Weight 94.591 kg, Total Volume: 750, Start date: 11/18/16 8:32:00 CDT, Duration: 10 hr, Stop date: 11/18/16 18:31:00 CDT Inactive 11/18/2016 [facility] Rosuvastatin calcium 40 MG Oral Tablet [Crestor] 40 mg=1 tab, PO, Bedtime, # 30 tab, 0 Refill(s) No Longer Active 11/18/2016 [facility] CoQ10 300 mg, PO, Daily, 0 Refill(s) Active 11/17/2016 [facility] glimepiride 2 mg oral tablet 2 mg=1 tab, PO, Daily, 0 Refill(s) Active 11/17/2016 [facility] Nitroglycerin See Instructions, 0 Refill(s) Active 11/17/2016 [facility] aspirin 81 mg tablet, enteric coated 81 mg=1 tab, PO, Daily, # 90 tab, 3 Refill(s) Active 11/17/2016 [facility] metoprolol tartrate 50 mg oral tablet 50 mg=1 tab, PO, BID, 0 Refill(s) No Longer Active 11/17/2016 [facility] losartan 100 mg oral tablet 100 mg=1 tab, PO, Daily, # 30 tab, 0 Refill(s) Active 11/17/2016 [facility] lamsoprazole lamsoprazole, See Instructions, Refill(s) 0 Active 11/17/2016 [facility] amLODIPine 10 mg oral tablet 10 mg=1 tab, PO, Daily, # 30 tab, 0 Refill(s) Active 11/17/2016 [facility] Rosuvastatin calcium 20 MG Oral Tablet [Crestor] 20 mg=1 tab, PO, Bedtime, # 30 tab, 0 Refill(s) No Longer Active 11/17/2016 [facility] 12 HR ranolazine 500 MG Extended Release Tablet [Ranexa] 500 mg=1 tab, PO, BID, # 60 tab, 0 Refill(s) Active 11/17/2016 [facility] rivaroxaban 20 MG Oral Tablet [Xarelto] 20 mg=1 tab, PO, QPM, *LAST DOSE 11/15/16*, # 30 tab, 3 Refill(s) Active 11/17/2016 [facility] isosorbide mononitrate 30 mg oral tablet, extended release 30 mg=1 tab, PO, QAM, # 30 tab, 0 Refill(s) Active 11/17/2016 [facility] Allergies, Adverse Reactions, Alerts Substance Category Reaction Severity Reaction type Status Date Reported Comments Source Immunizations Immunization Date Given Site Status Last Updated Comments Source pneumococcal 13-valent vaccine 11/19/2016 Left deltoid completed Sumi [facility] Results Order Name Results Value Reference Range Date Interpretation Comments Source Chest 2 views DX Chest 2 views DX Patient Name: GILBERT HERMAN : 1945; Age: 71 years y/o Male MR: [id number] * CHEST, 2 views HISTORY: Status post [...] The regional skeleton is otherwise unremarkable. SL: [id number] 11/20/2016 - - Read by: Wallace Pérez MD Dictated Date/time: 11/20/16 11:57 Electronically Signed by: Wallace Pérez MD 11/20/16 11:58 FINAL REPORT [facility] CHEM PANEL eGFR 68 mL/min/1.73m2 11/19/2016 Result [...] should be multiplied by the estimated BMI. [facility] CHEM PANEL Sodium Lvl 141 meq/L 135 - 145 11/19/2016 [facility] CHEM PANEL Creatinine Lvl 1.10 mg/dL 0.50 - 1.40 11/19/2016 [facility] CHEM PANEL BUN 21 mg/dL 7 - 22 11/19/2016 [facility] CHEM PANEL Glucose Lvl 160 mg/dL 70 - 99 11/19/2016 [facility] CHEM PANEL CO2 29 meq/L 24 - 32 11/19/2016 [facility] CHEM PANEL Calcium Lvl 9.1 mg/dL 8.5 - 10.5 11/19/2016 [facility] CHEM PANEL Chloride Lvl 107 meq/L 95 - 109 11/19/2016 [facility] CHEM PANEL Potassium Lvl 3.9 meq/L 3.5 - 5.1 11/19/2016 [facility] CHEM PANEL AGAP 8.9 meq/L 10.0 - 20.0 11/19/2016 [facility] HEMATOLOGY INR 1.01 0.85 - 1.17 11/19/2016 [facility] HEMATOLOGY PT 13.5 s 12.0 - 14.7 11/19/2016 [facility] HEMATOLOGY WBC 8.4 K/CMM 3.7 - 10.4 11/19/2016 [facility] HEMATOLOGY MCH 26.2 pg 27.0 - 31.0 11/19/2016 [facility] MCV 80.2 fL 80.0 - 94.0 11/19/2016 [facility] RBC 4.78 M/CMM 4.70 - 6.10 11/19/2016 [facility] Hct 38.3 % 42.0 - 54.0 11/19/2016 [facility] Hgb 12.5 g/dL 14.0 - 18.0 11/19/2016 [facility] RDW 16.1 % 11.5 - 14.5 11/19/2016 [facility] MCHC 32.7 g/dL 32.0 - 36.0 11/19/2016 [facility] MPV 9.4 fL 7.4 - 10.4 11/19/2016 [facility] Platelet 213 K/CMM 133 - 450 11/19/2016 [facility] Lymphocytes 26.7 % 20.0 - 40.0 11/19/2016 [facility] Segs 61.4 % 45.0 - 75.0 11/19/2016 [facility] Basophils # 0.1 K/CMM 0.0 - 0.2 11/19/2016 [facility] Monocytes 9.0 % 2.0 - 12.0 11/19/2016 [facility] Monocytes # 0.8 K/CMM 0.0 - 0.8 11/19/2016 [facility] Eosinophils # 0.2 K/CMM 0.0 - 0.5 11/19/2016 [facility] Basophils 0.6 % 0.0 - 1.0 11/19/2016 [facility] Eosinophils 2.3 % 0.0 - 4.0 11/19/2016 [facility] Lymphocytes # 2.2 K/CMM 1.0 - 5.5 11/19/2016 [facility] Segs-Bands # 5.1 K/CMM 1.5 - 8.1 11/19/2016 [facility] Chest 1 v for Placement DX Chest 1 v for Placement DX Patient Name: GILBERT HERMAN : 1945; Age: 71 years y/o Male MR: [id number] Study: Chest 1 v for Placement DX [...] AGAP 12.1 meq/L 10.0 - 20.0 11/17/2016 [facility] CHEM PANEL eGFR 55 mL/min/1.73m2 11/17/2016 Result [...] Protein 7.5 g/dL 6.4 - 8.4 11/17/2016 [facility] CHEM PANEL Albumin Lvl 3.4 g/dL 3.5 - 5.0 11/17/2016 [facility] CHEM PANEL ALT 24 unit/L 0 - 65 11/17/2016 [facility] CHEM PANEL Alk Phos 78 unit/L 39 - 136 11/17/2016 [facility] CHEM PANEL Bili Total 0.6 mg/dL 0.2 - 1.3 11/17/2016 [facility] CHEM PANEL AST 13 unit/L 0 - 37 11/17/2016 [facility] CHEM PANEL CO2 26 meq/L 24 - 32 11/17/2016 [facility] CHEM PANEL Chloride Lvl 103 meq/L 95 - 109 11/17/2016 [facility] CHEM PANEL Calcium Lvl 8.8 mg/dL 8.5 - 10.5 11/17/2016 [facility] CHEM PANEL BUN 21 mg/dL 7 - 22 11/17/2016 [facility] CHEM PANEL Sodium Lvl 137 meq/L 135 - 145 11/17/2016 [facility] CHEM PANEL Potassium Lvl 4.1 meq/L 3.5 - 5.1 11/17/2016 [facility] CHEM PANEL Glucose Lvl 274 mg/dL 70 - 99 11/17/2016 [facility] CHEM PANEL Creatinine Lvl 1.30 mg/dL 0.50 - 1.40 11/17/2016 [facility] HEMATOLOGY Platelet 222 K/CMM 133 - 450 11/17/2016 [facility] MPV 9.5 fL 7.4 - 10.4 11/17/2016 [facility] HEMATOLOGY RDW 15.6 % 11.5 - 14.5 11/17/2016 [facility] RBC 4.78 M/CMM 4.70 - 6.10 11/17/2016 [facility] HEMATOLOGY WBC 8.0 K/CMM 3.7 - 10.4 11/17/2016 [facility] MCHC 32.8 g/dL 32.0 - 36.0 11/17/2016 [facility] MCV 80.5 fL 80.0 - 94.0 11/17/2016 [facility] MCH 26.4 pg 27.0 - 31.0 11/17/2016 [facility] Hgb 12.6 g/dL 14.0 - 18.0 11/17/2016 [facility] Hct 38.5 % 42.0 - 54.0 11/17/2016 [facility] HEMATOLOGY Basophils # 0.1 K/CMM 0.0 - 0.2 11/17/2016 [facility] HEMATOLOGY Lymphocytes # 1.9 K/CMM 1.0 - 5.5 11/17/2016 [facility] HEMATOLOGY Monocytes # 0.6 K/CMM 0.0 - 0.8 11/17/2016 [facility] HEMATOLOGY Eosinophils # 0.1 K/CMM 0.0 - 0.5 11/17/2016 [facility] HEMATOLOGY Basophils 1.0 % 0.0 - 1.0 11/17/2016 [facility] HEMATOLOGY Segs-Bands # 5.2 K/CMM 1.5 - 8.1 11/17/2016 [facility] HEMATOLOGY Eosinophils 1.9 % 0.0 - 4.0 11/17/2016 [facility] HEMATOLOGY Segs 65.3 % 45.0 - 75.0 11/17/2016 [facility] HEMATOLOGY Monocytes 7.5 % 2.0 - 12.0 11/17/2016 [facility] HEMATOLOGY Lymphocytes 24.3 % 20.0 - 40.0 11/17/2016 [facility] Vital Signs Vital Sign Value Date Comments Source Systolic (mm Hg) 147 11/20/2016 [facility] Diastolic (mm Hg) 79 11/20/2016 [facility] Respitory Rate 20 11/20/2016 [facility] Heart Rate 86 11/20/2016 [facility] Temperature Oral (F) 98.1 F 11/20/2016 [facility] Respitory Rate 20 11/20/2016 [facility] Heart Rate 82 11/20/2016 [facility] Temperature Oral (F) 98 F 11/20/2016 [facility] Systolic (mm Hg) 144 11/20/2016 [facility] Diastolic (mm Hg) 60 11/20/2016 [facility] Temperature Oral (F) 97.9 F 11/20/2016 [facility] Heart Rate 70 11/20/2016 [facility] Systolic (mm Hg) 142 11/20/2016 [facility] Diastolic (mm Hg) 63 11/20/2016 [facility] Respitory Rate 20 11/20/2016 [facility] Height 175.26 cm 11/17/2016 [facility] BMI Calculated 30.8 11/17/2016 [facility] Weight 94.591 11/17/2016 [facility] Encounters Location Location Details Encounter Type Encounter Number Reason For Visit Attending Provider ADM Date DC Date Status Source [facility] Inpatient [id number] Chuck Amber 11/19/2016 11/20/2016 [facility] Procedures Procedure Code Date Perfomer Comments Source Aortic aneurysm repair<sup>1</sup> [id number] with sleeve [facility] CABG x 4 - Coronary artery bypass grafts x 4 [id number] [facility] Cardiac catheterization<sup>2</sup> [id number] 4 stents over 2 years [facility] Cervical arthrodesis<sup>3</sup> [id number] with plate [facility]
--- NOTE | 2018-05-28 15:59 | Operative Report ---
DATE OF PROCEDURE: May 28, 2018 INDICATIONS: Subclavian artery stenosis. PROCEDURES PERFORMED 1. Angioplasty of left subclavian artery. 2. Unilateral extremity angiogram. 3. Aortic arch angiogram. Access obtained in right femoral artery. A 6-Amharic, 90 cm Shuttle sheath was advanced to the descending thoracic aorta. Patient received 10,000 units of intravenous heparin for anticoagulation. Using a glide catheter, the sheath was negotiated into the left subclavian artery and 80% stenosis was noted. Balloon dilatation with 8-mm balloon resulted in excellent end result, less than 20% residual stenosis. No stent was required. Sheath was exchanged to a Vascade closure device. Patient was discharged home same day. Job#: [id number] ROMANA
== END | disposition home or self-care (01) ==
LOC: CATH LAB 10:18
PROVIDERS: ATTEND Internal Medicine Cardiovascular Disease
DX: I70.8 Atherosclerosis of other arteries (principal); I25.10 Atherosclerotic heart disease of native coronary artery without angina pectoris; I48.0 Paroxysmal atrial fibrillation; I77.1 Stricture of artery; Z95.0 Presence of cardiac pacemaker; Z95.1 Presence of aortocoronary bypass graft; E11.22 Type 2 diabetes mellitus with diabetic chronic kidney disease; I13.11 Hypertensive heart and chronic kidney disease without heart failure, with stage 5 chronic kidney disease, or end stage renal disease; N18.6 End stage renal disease; I71.9 Aortic aneurysm of unspecified site, without rupture; E78.5 Hyperlipidemia, unspecified; F17.210 Nicotine dependence, cigarettes, uncomplicated; Z79.01 Long term (current) use of anticoagulants; Z79.84 Long term (current) use of oral hypoglycemic drugs; Z01.812 Encounter for preprocedural laboratory examination
CPT/HCPCS: 36415; 37246; 80053; 85025; 85610; C1725; C1760; C1769 ×2; C1887; J2001; J2250; J2720; J7030; Q9967

== ENCOUNTER 2018-07-12 12:44 | Outpatient (RCR) | payer BC ==
[~2018-07-12 12:44] MED LIST changes: -IOPAMIDOL 370 MG/ML 200 ML INFUS..BTL INJ ONE; -SODIUM CHLORIDE 0.9% 100 ML 100 ML ONE; -SODIUM CHLORIDE 0.9% 250ML 250 ML ONE; -SODIUM CHLORIDE 0.9% 500ML 500 ML ONE
== END 2018-07-15 ==
LOC: PT 12:44
PROVIDERS: ATTEND Orthopaedic Surgery
DX: M70.61 Trochanteric bursitis, right hip (principal); M62.81 Muscle weakness (generalized); R26.2 Difficulty in walking, not elsewhere classified; Z91.81 History of falling

== ENCOUNTER → 2018-07-12 | Outpatient (CLI) | payer BC ==
[~2018-07-12] MED LIST changes: -FENTANYL CITRATE/PF 100MCG/2 ML INJ ONE; -HEPARIN SOD/SOD CHLORIDE 2,000 ML ONE; -IOPAMIDOL 300MG/ML 100 ML INFUS..BTL IV ONE; +IOPAMIDOL 370 MG/ML 200 ML INFUS..BTL INJ ONE; -LIDOCAINE HCL 2% LOCAL 20 ML VIAL ONE; -MIDAZOLAM HCL 2 MG/2 ML VIAL ONE; -PROTAMINE SULFATE 10 MG/ML 5 ML VIAL ONE; -SODIUM CHLORIDE 0.9% 1000ML 1,000 ML ONE; +SODIUM CHLORIDE 0.9% 250ML 250 ML ONE; +SODIUM CHLORIDE 0.9% 500ML 500 ML ONE
[2018-07-12 15:17] LABS: CREATININE, SERUM 1.45 mg/dL (0.72-1.25)
--- NOTE | 2018-07-13 07:57 | Diagnostic Imaging Report ---
EXAM: CTA Abdomen and Pelvis WITH AND WITHOUT CONTRAST. DATE: 07/12/2018 2:42 PM INDICATION: Status post abdominal aortic aneurysm repair. COMPARISON: 03/16/2017 and 06/04/2015 CT scans TECHNIQUE: CT angiogram of the abdomen and pelvis was obtained before and after the administration of IV contrast. Prospective gating was performed. Images reviewed in the axial, coronal, and sagittal planes. 3D reconstructions performed on off-line workstation. Dose modulation, iterative reconstruction, and/or weight based adjustment of the mA/kV was utilized to reduce the radiation dose to as low as reasonably achievable. IV Contrast: 100 mL [id number]. Total DLP: 1255.4 mGycm FINDINGS: VASCULAR: Diaphragmatic hiatus: 2.9 cm Just above the proximal aspect of the endograft: 2.9 cm Renal arteries: 2.2 cm Vascularized endograft at mid infrarenal location: 2.7 cm; excluded aneurysm sac measures 4.5 cm. Abdominal aorta at bifurcation: 4.9 cm Stable endovascular stent in the mesenteric/renal aorta and aortobiiliac stent. Grafts are patent. No endoleak identified. No evidence of change in the excluded aneurysm sac. Extensive atherosclerotic changes of the abdominal aorta and branch vessels. No evidence of aortic dissection or intramural hematoma. Again noted is mild stenosis at the origin of the celiac artery and superior mesenteric artery. Dual right and single left renal arteries patent. 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 External iliac arteries are tortuous bilaterally without significant stenosis. Common femoral, proximal superficial femoral and profunda femoris arteries are patent. Proximal right internal iliac artery is occluded. Bilateral internal iliac arteries demonstrate extensive atherosclerotic changes. Venous structures: Not well evaluated given phase of contrast. NON-VASCULAR: Lung bases: Dependent atelectatic changes. A 1.5 cm well-circumscribed nodule in the right lower lobe is stable since CT on 12/10/2015, but increased in size from CT on 12/27/2013 when it measured 1.2 cm. Granuloma left lung base stable. Partially seen pacemaker leads. Coronary stent. Liver: Calcified granulomas. Otherwise, unremarkable. The gallbladder is unremarkable in appearance. Pancreas: No evidence of solid mass or ductal dilatation. Spleen: Multiple calcified granulomas. No evidence of splenomegaly. Adrenal glands: No evidence of nodule. Kidneys: Multifocal bilateral cortical scarring. Right-sided renal cysts are again noted. No evidence of solid mass or stone. Urinary bladder: Unremarkable in appearance. Prostate and seminal vesicles: Prostatomegaly with coarse calcifications. Bowel: Normal caliber. Descending colonic and sigmoid diverticulosis without CT evidence of diverticulitis. Normal appendix. Peritoneum: No evidence of free air or free fluid. Lymph nodes: No evidence of lymphadenopathy. Bones and Soft tissues: No acute osseous abnormality. Mild degenerative disc changes in the lumbar spine. 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 IMPRESSION: Stable aortic endograft without evidence of endoleak or other acute vascular abnormality. A 1.5 cm right lower lobe pulmonary nodule, unchanged since CT on 12/09/2016 but increased in size from 12/27/2013, when it measured 1.2 cm. Imaging suggests benign etiology such as non-calcified granuloma, however the patient has a history of tobacco use. Continued imaging follow-up is advised. Signed by: Dr. Leilani Davila MD on 07/13/2018 7:53 AM
== END ==
LOC: CT 14:33
PROVIDERS: ATTEND Internal Medicine
DX: I71.4 Abdominal aortic aneurysm, without rupture (principal); R91.8 Other nonspecific abnormal finding of lung field; Z87.891 Personal history of nicotine dependence
CPT/HCPCS: 36415; 74174; 82565; 84520; 96360; J7040; J7050; Q9967

== ENCOUNTER 2018-07-20 08:54 | Outpatient (RCR) | payer BC | END 2018-08-12 | LOC: PT 08:54 | PROVIDERS: ATTEND Orthopaedic Surgery | DX: M70.61 Trochanteric bursitis, right hip (principal) ==

== ENCOUNTER → 2019-02-15 | Day surgery (SDC) | payer BC ==
[2019-02-11 10:26] LABS: BASOPHILS # (AUTO) 0.1 (0.0-0.1); BASOPHILS % 1.1 % (0.0-1.0); EOSINOPHILS # (AUTO) 0.2 (0.0-0.4); EOSINOPHILS % 3.2 % (0.0-6.0); HEMOGLOBIN 12.8 g/dL (14.0-18.0); LYMPHOCYTES # (AUTO) 2.2 (1.0-3.2); LYMPHOCYTES % 29.2 % (18.0-39.1); MEAN CORPUSCULAR HEMOGLOBIN 23.9 pg (28-32); MEAN CORPUSCULAR HGB CONC 31.2 g/dL (31-35); MEAN CORPUSCULAR VOLUME 76.5 fL (81-99); MONOCYTES # (AUTO) 0.7 (0.2-0.8); MONOCYTES % 8.7 % (4.4-11.3); NEUTROPHILS # (AUTO) 4.3 (2.1-6.9); NEUTROPHILS % 56.7 % (38.7-80.0); PLATELET COUNT 227 x10e3/uL (140-360); RED BLOOD COUNT 5.36 x10e6/uL (4.3-5.7); RED CELL DISTRIBUTION WIDTH 19.1 % (11.7-14.4)
[2019-02-11 10:51] LABS: ALBUMIN/GLOBULIN RATIO 1.2 (0.8-2.0); ANION GAP 17.3 mmol/L (8-16); CALCIUM 9.8 mg/dL (8.4-10.2); CREATININE, SERUM 1.78 mg/dL (0.72-1.25); POTASSIUM 4.3 mmol/L (3.5-5.1)
[2019-02-11 16:41] LABS: PLATELET ESTIMATE ADEQUATE; PLATELET MORPHOLOGY COMMENT FEW LARGE; RBC MORPHOLOGY COMMENT NORMAL
[2019-02-15] VITALS (13 sets, daily range): BP systolic 141–189; BP diastolic 71–87
[~2019-02-15] VITALS: Ht 175.3 cm; Wt 90.7 kg
[~2019-02-15] MED LIST changes: +ALPRAZOLAM 0.5 MG TAB ONE; +AMBIEN10 MG PO; +ATROPINE SULFATE 0.1 MG/ML 10ML SYR ONE; +DIPHENHYDRAMINE HCL 25 MG CAP ONE; +FENTANYL CITRATE/PF 100MCG/2 ML INJ ONE; +HEPARIN SOD (PORCINE) 1000 UNIT/ML 30ML ONE; +HEPARIN SOD/SOD CHLORIDE 2,000 ML ONE; +IOPAMIDOL 370 MG/ML 200 ML INFUS..BTL INJ ONE; +LIDOCAINE HCL 2% LOCAL 20 ML VIAL ONE; +MIDAZOLAM HCL 2 MG/2 ML VIAL ONE; +NITROGLYCERIN/D5W 200 MCG/ML 250 ML ONE; +SODIUM CHLORIDE 0.9% 1000ML 1,000 ML ONE
--- OUTSIDE RECORDS SUMMARY | 2019-02-15 06:28 | XMS REPORT | Continuity of Care Document ---
Author Author [employer] Organization [employer] Address Unknown Phone Unavailable Care Team Providers Care [facility] Name Role Phone [employer] Unavailable Unavailable Problems Problem Status Onset Date Classification Date Reported Comments Source UNK Active 11/14/2016 [facility] CAD Active 11/14/2016 [facility] Angina (disorder) Active Problem 11/23/2016 [facility] Coronary arteriosclerosis (disorder) Active Problem 11/23/2016 [facility] Diabetes mellitus (disorder) Active Problem 11/23/2016 [facility] Dyspnea (finding) Active Problem 11/23/2016 [facility] History of - Disorder (context-dependent category) Resolved Problem 11/23/2016 [facility] Jaw pain (finding) Active Problem 11/23/2016 [facility] Sleep apnea (finding) Active Problem 11/23/2016 [facility] ATHSCL HEART DISEASE OF [place] CORONARY Active [facility] Medications Medication Details Route Status Patient Instructions Ordering Provider Order Date Source clopidogrel 75 mg oral tablet 75 mg=1 tab, PO, Daily, # 30 tab, 0 Refill(s) Active 11/20/2016 [facility] 24 HR Metoprolol Tartrate 50 MG Extended Release Tablet [Toprol] 50 mg=1 tab, PO, Daily, # 30 tab, 1 Refill(s), other Active 11/20/2016 [facility] Rosuvastatin calcium 40 MG Oral Tablet [Crestor] 40 mg=1 tab, PO, Bedtime, # 30 tab, 1 Refill(s) Active 11/20/2016 [facility] Minocycline 100 mg, 2 cap, Route: PO, Drug form: CAP, [id number], Dosing Weight 94.591, kg, Start date: 11/20/16 9:00:00 CDT, Duration: 7 day, Stop date: 11/26/16 21:00:00 CDTNotes: (Same as:Minocin) No milk/antacids/iron. Inactive 11/20/2016 [facility] Cefazolin 1 gm, 100 mL, Route: IVPB, Drug form: INJ, Q8H, Dosing Weight 94.591, kg, Start date: 11/19/16 21:00:00 CDT, Duration: 1 doses or times, Stop date: 11/19/16 21:00:00 CDT, ABX Indication: Surgical Prophylaxis Inactive 11/20/2016 [facility] acetaminophen-codeine #3 1 tab, Route: PO, Drug Form: TAB, Dosing Weight 94.591, kg, Q4H, PRN Pain Score 4-6, Start date: 11/19/16 14:41:00 CDT, Duration: 30 day, Stop date: 12/19/16 14:40:00 CDTNotes: Do not exceed 4gm/day of acetaminophen. (Same as: Tylenol with Codeine # 3) No Longer Active 11/19/2016 [facility] Streptococcus pneumoniae serotype 1 capsular antigen diphtheria [id number] protein conjugate vaccine / Streptococcus pneumoniae serotype 14 capsular antigen diphtheria SBP124 protein conjugate vaccine / Streptococcus pneumoniae serotype 18C capsular antigen d 0.5 mL, Route: IM, Drug Form: INJ, Daily, Start date: 11/19/16 9:00:00 CDT, Duration: 1 doses or times, Stop date: 11/19/16 9:00:00 CDTNotes: Shake well prior to use (Same as: Prevnar 13) Inactive 11/19/2016 [facility] Glucotrol 10 mg, 1 tab, Route: PO, Drug form: TAB, Daily, Start date: 11/19/16 9:00:00 CDT, Duration: 30 day, Stop date: 12/18/16 9:00:00 CDTNotes: (Same as: Glucotrol) 30 min before meals. No Longer Active 11/19/2016 [facility] Crestor 40 mg, 2 tab, Route: PO, Drug form: TAB, Bedtime, Dosing Weight 94.591, kg, Start date: 11/18/16 21:00:00 CDT, Duration: 30 day, Stop date: 12/17/16 21:00:00 CDTNotes: Same as Crestor No Longer Active 11/19/2016 [facility] Insulin, Aspart, Human 1 unit, 0.01 [...] days from Date No Longer Active 11/18/2016 [facility] Glucagon 1 mg, Route: IM, Drug form: PDR/INJ, PRN, Dosing Weight 94.591, kg, PRN Blood Glucose Results, Start date: 11/18/16 18:04:00 CDT, Duration: 30 day, Stop date: 12/18/16 18:03:00 CDT No Longer Active 11/18/2016 [facility] Dextrose 50% Syringe 25 gm, 50 mL, Route: IVP, Drug Form: INJ, Dosing Weight 94.591, kg, PRN, PRN Blood Glucose Results, Start date: 11/18/16 18:04:00 CDT, Duration: 30 day, Stop date: 12/18/16 18:03:00 CDT No Longer Active 11/18/2016 [facility] ATTN RN please bring pt home med to pharmacy to be labeled ATTN RN please bring pt home med to pharmacy to be labeled, ATTN RN, Drug form: MISC, Route: MISC, QSHIFT, 11/18/16 16:00:00 CDT, Duration: 30 day, Stop date: 12/18/16 8:00:00 CDT No Longer Active 11/18/2016 [facility] Plavix 75 mg, 1 tab, Route: PO, Drug form: TAB, Daily, Dosing Weight 94.591, kg, Start date: 11/18/16 9:00:00 CDT, Duration: 30 day, Stop date: 12/17/16 9:00:00 CDTNotes: (Same As: Plavix) No Longer Active 11/18/2016 [facility] ubiquinone 300 mg, Route: PO, Daily, Dosing Weight 94.591, kg, Start date: 11/18/16 9:00:00 CDT, Duration: 30 day, Stop date: 12/17/16 9:00:00 CDT No Longer Active 11/18/2016 [facility] 12 HR ranolazine 500 MG Extended Release Tablet [Ranexa] 500 mg, 1 tab, Route: PO, Drug form: TAB, BID, Dosing Weight 94.591, kg, Start date: 11/18/16 9:00:00 CDT, Duration: 30 day, Stop date: 12/17/16 17:00:00 CDTNotes: Same as Ranexa "Do Not Crush" No Longer Active 11/18/2016 [facility] metoprolol tartrate 50 mg, 1 tab, Route: PO, Drug form: TAB, Q12H, Dosing Weight 94.591, kg, Start date: 11/18/16 9:00:00 CDT, Duration: 30 day, Stop date: 12/17/16 21:00:00 CDTNotes: (Same as: Lopressor) No Longer Active 11/18/2016 [facility] Losartan 100 mg, 2 tab, Route: PO, Drug form: TAB, Daily, Dosing Weight 94.591, kg, Start date: 11/18/16 9:00:00 CDT, Duration: 30 day, Stop date: 12/17/16 9:00:00 CDTNotes: (Same as: Cozaar) No Longer Active 11/18/2016 [facility] Isosorbide 30 mg, 1 tab, Route: PO, Drug form: ERTAB, QAM, Dosing Weight 94.591, kg, Start date: 11/18/16 9:00:00 CDT, Duration: 30 day, Stop date: 12/17/16 9:00:00 CDTNotes: (Same as:Imdur) "Do Not Crush" Take on empty stomach/ full glass of water. Do not crush No Longer Active 11/18/2016 [facility] glimepiride 2 mg, Route: PO, Drug form: TAB, Daily, Dosing Weight 94.591, kg, Start date: 11/18/16 9:00:00 CDT, Duration: 30 day, Stop date: 12/17/16 9:00:00 CDT Inactive 11/18/2016 [facility] aspirin 81 mg tablet, enteric coated 81 mg, 1 tab, Route: PO, Drug form: ECTAB, Daily, Dosing Weight 94.591, kg, Start date: 11/18/16 9:00:00 CDT, Duration: 30 day, Stop date: 12/17/16 9:00:00 CDTNotes: Do not crush or chew. (Same As: Ecotrin) No Longer Active 11/18/2016 [facility] Amlodipine 10 mg, 2 tab, Route: PO, Drug form: TAB, Daily, Dosing Weight 94.591, kg, Start date: 11/18/16 9:00:00 CDT, Duration: 30 day, Stop date: 12/17/16 9:00:00 CDTNotes: (Same as: Norvasc) No Longer Active 11/18/2016 [facility] Dilaudid 1 mg, 1 mL, Route: IVP, Drug form: INJ, Q3H, Dosing Weight 94.591, kg, PRN Pain Score 7-10, Start date: 11/18/16 8:35:00 CDT, Duration: 30 day, Stop date: 12/18/16 8:34:00 CDT No Longer Active 11/18/2016 [facility] Temazepam 15 mg, 1 cap, Route: PO, Drug form: CAP, Bedtime, Dosing Weight 94.591, kg, PRN Insomnia, Start date: 11/18/16 8:32:00 CDT, Duration: 30 day, Stop date: 12/18/16 8:31:00 CDTNotes: (Same As: Restoril) No Longer Active 11/18/2016 [facility] Morphine 4 mg, 1 mL, Route: IVP, Drug form: SOLN, Q2H, Dosing Weight 94.591, kg, PRN Pain Score 7-10, Start date: 11/18/16 8:32:00 CDT, Duration: 30 day, Stop date: 12/18/16 8:31:00 CDTNotes: (Same as:MORPhine Sulfate) Inactive 11/18/2016 [facility] Nitroglycerin 0.4 mg, 1 tab, Route: SL, Drug form: TAB, Q5Min, Dosing Weight 94.591, kg, PRN Chest Pain, Start date: 11/18/16 8:32:00 CDT, Duration: 3 doses or times, Stop date: Limited # of timesNotes: (Same as:Danielle Wallacetat) "Do Not Crush" Sublingual tablet No Longer Active 11/18/2016 [facility] Acetaminophen 325 MG / Hydrocodone Bitartrate 5 MG Oral Tablet 1 tab, Route: PO, Drug Form: TAB, Dosing Weight 94.591, kg, Q4H, PRN Pain Score 4-6, Start date: 11/18/16 8:32:00 CDT, Duration: 30 day, Stop date: 12/18/16 8:31:00 CDTNotes: (Same as: [place] 325/5) Do not exceed 4gm/day of acetaminophen. No Longer Active 11/18/2016 [facility] Sodium Chloride 0.154 MEQ/ML Injectable Solution 750 mL, Rate: 75 ml/hr, Infuse over: 10 hr, Route: IV, Dosing Weight 94.591 kg, Total Volume: 750, Start date: 11/18/16 8:32:00 CDT, Duration: 10 hr, Stop date: 11/18/16 18:31:00 CDT Inactive 11/18/2016 [facility] Rosuvastatin calcium 40 MG Oral Tablet [Crestor] 40 mg=1 tab, PO, Bedtime, # 30 tab, 0 Refill(s) No Longer Active 11/18/2016 [facility] CoQ10 300 mg, PO, Daily, 0 Refill(s) Active 11/17/2016 [facility] glimepiride 2 mg oral tablet 2 mg=1 tab, PO, Daily, 0 Refill(s) Active 11/17/2016 [facility] Nitroglycerin See Instructions, 0 Refill(s) Active 11/17/2016 [facility] aspirin 81 mg tablet, enteric coated 81 mg=1 tab, PO, Daily, # 90 tab, 3 Refill(s) Active 11/17/2016 [facility] metoprolol tartrate 50 mg oral tablet 50 mg=1 tab, PO, BID, 0 Refill(s) No Longer Active 11/17/2016 [facility] losartan 100 mg oral tablet 100 mg=1 tab, PO, Daily, # 30 tab, 0 Refill(s) Active 11/17/2016 [facility] lamsoprazole lamsoprazole, See Instructions, Refill(s) 0 Active 11/17/2016 [facility] amLODIPine 10 mg oral tablet 10 mg=1 tab, PO, Daily, # 30 tab, 0 Refill(s) Active 11/17/2016 [facility] Rosuvastatin calcium 20 MG Oral Tablet [Crestor] 20 mg=1 tab, PO, Bedtime, # 30 tab, 0 Refill(s) No Longer Active 11/17/2016 [facility] 12 HR ranolazine 500 MG Extended Release Tablet [Ranexa] 500 mg=1 tab, PO, BID, # 60 tab, 0 Refill(s) Active 11/17/2016 [facility] rivaroxaban 20 MG Oral Tablet [Xarelto] 20 mg=1 tab, PO, QPM, *LAST DOSE 11/15/16*, # 30 tab, 3 Refill(s) Active 11/17/2016 [facility] isosorbide mononitrate 30 mg oral tablet, extended release 30 mg=1 tab, PO, QAM, # 30 tab, 0 Refill(s) Active 11/17/2016 [facility] Allergies, Adverse Reactions, Alerts No Known Medication Allergies Immunizations Immunization Date Given Site Status Last Updated Comments Source pneumococcal 13-valent vaccine 11/19/2016 Left deltoid completed Sumi [facility] Results Order Name Results Value Reference Range Date Interpretation Comments Source CHEM PANEL eGFR 68 11/19/2016 Result Comment: The eGFR is calculated [...] should be multiplied by the estimated BMI. [facility] CHEM PANEL Sodium Lvl 141 135 - 145 11/19/2016 [facility] CHEM PANEL Creatinine Lvl 1.10 0.50 - 1.40 11/19/2016 [facility] CHEM PANEL BUN 21 7 - 22 11/19/2016 [facility] CHEM PANEL Glucose Lvl 160 70 - 99 11/19/2016 [facility] CHEM PANEL CO2 29 24 - 32 11/19/2016 [facility] CHEM PANEL Calcium Lvl 9.1 8.5 - 10.5 11/19/2016 [facility] CHEM PANEL Chloride Lvl 107 95 - 109 11/19/2016 [facility] CHEM PANEL Potassium Lvl 3.9 3.5 - 5.1 11/19/2016 [facility] CHEM PANEL AGAP 8.9 10.0 - 20.0 11/19/2016 [facility] HEMATOLOGY INR 1.01 0.85 - 1.17 11/19/2016 [facility] HEMATOLOGY PT 13.5 12.0 - 14.7 11/19/2016 [facility] HEMATOLOGY WBC 8.4 3.7 - 10.4 11/19/2016 [facility] HEMATOLOGY MCH 26.2 27.0 - 31.0 11/19/2016 [facility] HEMATOLOGY MCV 80.2 80.0 - 94.0 11/19/2016 [facility] HEMATOLOGY RBC 4.78 4.70 - 6.10 11/19/2016 [facility] HEMATOLOGY Hct 38.3 42.0 - 54.0 11/19/2016 [facility] HEMATOLOGY Hgb 12.5 14.0 - 18.0 11/19/2016 [facility] HEMATOLOGY RDW 16.1 11.5 - 14.5 11/19/2016 [facility] MCHC 32.7 32.0 - 36.0 11/19/2016 [facility] MPV 9.4 7.4 - 10.4 11/19/2016 [facility] Platelet 213 133 - 450 11/19/2016 [facility] Lymphocytes 26.7 20.0 - 40.0 11/19/2016 [facility] HEMATOLOGY Segs 61.4 45.0 - 75.0 11/19/2016 [facility] HEMATOLOGY Basophils # 0.1 0.0 - 0.2 11/19/2016 [facility] HEMATOLOGY Monocytes 9.0 2.0 - 12.0 11/19/2016 [facility] HEMATOLOGY Monocytes # 0.8 0.0 - 0.8 11/19/2016 [facility] HEMATOLOGY Eosinophils # 0.2 0.0 - 0.5 11/19/2016 [facility] HEMATOLOGY Basophils 0.6 0.0 - 1.0 11/19/2016 [facility] HEMATOLOGY Eosinophils 2.3 0.0 - 4.0 11/19/2016 [facility] HEMATOLOGY Lymphocytes # 2.2 1.0 - 5.5 11/19/2016 [facility] HEMATOLOGY Segs-Bands # 5.1 1.5 - 8.1 11/19/2016 [facility] CHEM PANEL A/G Ratio 0.8 0.7 - 1.6 11/17/2016 [facility] CHEM PANEL Globulin 4.1 2.7 - 4.2 11/17/2016 [facility] CHEM PANEL B/C Ratio 16 6 - 25 11/17/2016 [facility] CHEM PANEL AGAP 12.1 10.0 - 20.0 11/17/2016 [facility] CHEM PANEL eGFR 55 11/17/2016 Result Comment: The eGFR is calculated [...] should be multiplied by the estimated BMI. [facility] CHEM PANEL Total Protein 7.5 6.4 - 8.4 11/17/2016 [facility] CHEM PANEL Albumin Lvl 3.4 3.5 - 5.0 11/17/2016 [facility] CHEM PANEL ALT 24 0 - 65 11/17/2016 [facility] CHEM PANEL Alk Phos 78 39 - 136 11/17/2016 [facility] CHEM PANEL Bili Total 0.6 0.2 - 1.3 11/17/2016 [facility] CHEM PANEL AST 13 0 - 37 11/17/2016 [facility] CHEM PANEL CO2 26 24 - 32 11/17/2016 [facility] CHEM PANEL Chloride Lvl 103 95 - 109 11/17/2016 [facility] CHEM PANEL Calcium Lvl 8.8 8.5 - 10.5 11/17/2016 [facility] CHEM PANEL BUN 21 7 - 22 11/17/2016 [facility] CHEM PANEL Sodium Lvl 137 135 - 145 11/17/2016 [facility] CHEM PANEL Potassium Lvl 4.1 3.5 - 5.1 11/17/2016 [facility] CHEM PANEL Glucose Lvl 274 70 - 99 11/17/2016 [facility] CHEM PANEL Creatinine Lvl 1.30 0.50 - 1.40 11/17/2016 [facility] HEMATOLOGY Platelet 222 133 - 450 11/17/2016 [facility] HEMATOLOGY MPV 9.5 7.4 - 10.4 11/17/2016 [facility] HEMATOLOGY RDW 15.6 11.5 - 14.5 11/17/2016 [facility] HEMATOLOGY RBC 4.78 4.70 - 6.10 11/17/2016 [facility] WBC 8.0 3.7 - 10.4 11/17/2016 [facility] HEMATOLOGY MCHC 32.8 32.0 - 36.0 11/17/2016 [facility] MCV 80.5 80.0 - 94.0 11/17/2016 [facility] MCH 26.4 27.0 - 31.0 11/17/2016 [facility] HEMATOLOGY Hgb 12.6 14.0 - 18.0 11/17/2016 [facility] HEMATOLOGY Hct 38.5 42.0 - 54.0 11/17/2016 [facility] HEMATOLOGY Basophils # 0.1 0.0 - 0.2 11/17/2016 [facility] HEMATOLOGY Lymphocytes # 1.9 1.0 - 5.5 11/17/2016 [facility] HEMATOLOGY Monocytes # 0.6 0.0 - 0.8 11/17/2016 [facility] HEMATOLOGY Eosinophils # 0.1 0.0 - 0.5 11/17/2016 [facility] HEMATOLOGY Basophils 1.0 0.0 - 1.0 11/17/2016 [facility] HEMATOLOGY Segs-Bands # 5.2 1.5 - 8.1 11/17/2016 [facility] HEMATOLOGY Eosinophils 1.9 0.0 - 4.0 11/17/2016 [facility] HEMATOLOGY Segs 65.3 45.0 - 75.0 11/17/2016 [facility] HEMATOLOGY Monocytes 7.5 2.0 - 12.0 11/17/2016 [facility] HEMATOLOGY Lymphocytes 24.3 20.0 - 40.0 11/17/2016 [facility] Pathology Reports No Data Provided for This Section Diagnostic Reports Report Value Date Source Chest 2 views DX Patient Name: GILBERT HERMAN : 1945; Age: 71 years y/o Male MR: [id number] * CHEST, 2 views HISTORY: Status post [...] The regional skeleton is otherwise unremarkable. SL: [id number] 11/20/2016 [facility] Chest 1 v for Placement DX Patient Name: GILBERT HERMAN : 1945; Age: 71 years y/o Male MR: [id number] Study: Chest 1 v for Placement DX [...] acromioclavicular joint and right glenohumeral joint. SL: CSODERSTROM-PC 11/19/2016 [facility] Consultation Notes No Data Provided for This Section Discharge Summaries No Data Provided for This Section History and Physicals No Data Provided for This Section Vital Signs Vital Sign Value Date Comments Source Systolic (mm Hg) 147 11/20/2016 [facility] Diastolic (mm Hg) 79 11/20/2016 [facility] Respitory Rate 20 11/20/2016 [facility] Heart Rate 86 11/20/2016 [facility] Temperature Oral (F) 98.1 F 11/20/2016 [facility] Respitory Rate 20 11/20/2016 [facility] Heart Rate 82 11/20/2016 [facility] Temperature Oral (F) 98 F 11/20/2016 [facility] Systolic (mm Hg) 144 11/20/2016 [facility] Diastolic (mm Hg) 60 11/20/2016 [facility] Temperature Oral (F) 97.9 F 11/20/2016 [facility] Heart Rate 70 11/20/2016 [facility] Systolic (mm Hg) 142 11/20/2016 [facility] Diastolic (mm Hg) 63 11/20/2016 [facility] Respitory Rate 20 11/20/2016 [facility] Height 175.26 cm 11/17/2016 [facility] BMI Calculated 30.8 11/17/2016 [facility] Weight 94.591 11/17/2016 [facility] Encounters Location Location Details Encounter Type Encounter Number Reason For Visit Attending Provider ADM Date DC Date Status Source [facility] Inpatient [id number] Chuck Clark 11/19/2016 11/20/2016 [facility] Procedures Procedure Code Date Perfomer Comments Source Aortic aneurysm repair<sup>1</sup> [id number] with sleeve [facility] CABG x 4 - Coronary artery bypass grafts x 4 [id number] [facility] Cardiac catheterization<sup>2</sup> [id number] 4 stents over 2 years [facility] Cervical arthrodesis<sup>3</sup> [id number] with plate [facility] Assessment and Plan No Data Provided for This Section Plan of Care No Data Provided for This Section Social History Social History Date Source Social History TypeResponse Smoking Status Former smoker; Type: Cigarettes; Exposure to Tobacco Smoke None; Cigarette Smoking Last 365 Days No; Reg Smoking Cessation Counseling No 11/18/2016 [facility] Family History No Data Provided for This Section Advance Directives No Data Provided for This Section Functional Status No Data Provided for This Section
--- NOTE | 2019-02-15 14:42 | Operative Report ---
DATE OF PROCEDURE: 02/15/2019 SURGEON: Chuck Clark MD INDICATION: Coronary artery disease, unstable angina. PROCEDURES PERFORMED: 1. Left heart catheterization, selective coronary angiography. 2. Selective cannulation of one arterial and one venous bypass conduits. 3. Manual removal of right groin sheath. COMPLICATION: None. RECOMMENDATIONS: Aggressive medical therapy including external counterpulsation. DESCRIPTION OF PROCEDURE: Access obtained in the right femoral artery, a 6-Wolof sheath was placed. Diagnostic coronary angiogram revealed to have calcified but patent left main. Left anterior descending artery was occluded. Right coronary artery was occluded. Circumflex had moderate disease. Obtuse marginal branch 1.5 mm vessel with 90% stenosis. Left internal mammary artery bypass to left anterior descending artery, widely patent. Left subclavian artery proximal to the left internal mammary artery had 50% stenosis without any evidence of gradient (5 mm). Saphenous vein bypass to the right posterior descending artery was widely patent. Distal stents were widely patent. No intervention was deemed necessary. Right groin sheath was removed under manual pressure. The patient was discharged home same day. Chuck Clark MD [facility] /[id number]
== END | disposition home or self-care (01) ==
LOC: CATH LAB 06:25
PROVIDERS: ATTEND Internal Medicine Interventional Cardiology
DX: I25.700 Atherosclerosis of coronary artery bypass graft(s), unspecified, with unstable angina pectoris (principal); E78.5 Hyperlipidemia, unspecified; I48.0 Paroxysmal atrial fibrillation; I73.9 Peripheral vascular disease, unspecified; E11.22 Type 2 diabetes mellitus with diabetic chronic kidney disease; I13.2 Hypertensive heart and chronic kidney disease with heart failure and with stage 5 chronic kidney disease, or end stage renal disease; I50.9 Heart failure, unspecified; N18.6 End stage renal disease; G47.33 Obstructive sleep apnea (adult) (pediatric); Z01.812 Encounter for preprocedural laboratory examination; Z79.82 Long term (current) use of aspirin; Z79.84 Long term (current) use of oral hypoglycemic drugs; Z79.02 Long term (current) use of antithrombotics/antiplatelets; Z68.30 Body mass index [BMI] 30.0-30.9, adult; Z95.1 Presence of aortocoronary bypass graft; Z95.5 Presence of coronary angioplasty implant and graft; Z95.0 Presence of cardiac pacemaker
CPT/HCPCS: 36415; 80053; 85025; 93455; C1725; C1769 ×3; J1644; J2001; J2250; J3010; J7030; Q9967

== ENCOUNTER 2019-04-23 18:11 | Emergency (ER) | payer BC ==
[~2019-04-23] VITALS: Ht 175.3 cm; Wt 90.7 kg
[~2019-04-23 18:11] MED LIST changes: -ALPRAZOLAM 0.5 MG TAB ONE; -ATROPINE SULFATE 0.1 MG/ML 10ML SYR ONE; -DIPHENHYDRAMINE HCL 25 MG CAP ONE; -FENTANYL CITRATE/PF 100MCG/2 ML INJ ONE; -HEPARIN SOD (PORCINE) 1000 UNIT/ML 30ML ONE; -HEPARIN SOD/SOD CHLORIDE 2,000 ML ONE; -IOPAMIDOL 370 MG/ML 200 ML INFUS..BTL INJ ONE; -LIDOCAINE HCL 2% LOCAL 20 ML VIAL ONE; -MIDAZOLAM HCL 2 MG/2 ML VIAL ONE; -NITROGLYCERIN/D5W 200 MCG/ML 250 ML ONE; -SODIUM CHLORIDE 0.9% 1000ML 1,000 ML ONE
[2019-04-23 19:08] LABS: BASOPHILS # (AUTO) 0.1 (0.0-0.1); BASOPHILS % 0.5 % (0.0-1.0); EOSINOPHILS # (AUTO) 0.2 (0.0-0.4); EOSINOPHILS % 1.8 % (0.0-6.0); HEMATOCRIT 37.8 % (38.2-49.6); HEMOGLOBIN 11.8 g/dL (14.0-18.0); LYMPHOCYTES # (AUTO) 2.1 (1.0-3.2); MEAN CORPUSCULAR HEMOGLOBIN 24.5 pg (28-32); MEAN CORPUSCULAR HGB CONC 31.2 g/dL (31-35); MEAN CORPUSCULAR VOLUME 78.4 fL (81-99); MONOCYTES # (AUTO) 1.2 (0.2-0.8); MONOCYTES % 11.5 % (4.4-11.3); NEUTROPHILS # (AUTO) 6.9 (2.1-6.9); NEUTROPHILS % 65.6 % (38.7-80.0); PLATELET COUNT 219 x10e3/uL (140-360); RED BLOOD COUNT 4.82 x10e6/uL (4.3-5.7); RED CELL DISTRIBUTION WIDTH 18.1 % (11.7-14.4)
[2019-04-23 19:19] LABS: INR 1.15; PROTHROMBIN TIME 15.3 seconds (11.9-14.5)
[2019-04-23 19:20] LABS: PARTIAL THROMBOPLASTIN TIME 39.4 seconds (23.8-35.5)
[2019-04-23 19:30] LABS: ALBUMIN 3.9 g/dL (3.5-5.0); ALBUMIN/GLOBULIN RATIO 1.1 (0.8-2.0); ANION GAP 14.7 mmol/L (8-16); CALCIUM 9.6 mg/dL (8.4-10.2); CREATININE, SERUM 1.84 mg/dL (0.72-1.25); POTASSIUM 3.7 mmol/L (3.5-5.1)
--- NOTE | 2019-04-23 19:53 | Diagnostic Imaging Report ---
Exam: Right shoulder radiographs-2 views; right humerus radiographs-2 views History: Pain. Comparison: None. Findings: No evidence of acute fracture or malalignment. There are severe degenerative changes of the right glenohumeral and acromioclavicular joints with bone on bone contact and osteophyte formation. There is mild superior subluxation of the humeral head in relation to the glenoid, suggestive of rotator cuff pathology. Impression: No acute radiographic abnormality. 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 Findings suggestive of rotator cuff pathology. Signed by: Dr. Leilani Davila MD on 04/23/2019 7:50 PM
--- NOTE | 2019-04-23 20:15 | NUR ---
PT UPSET THAT MRI WAS NOT DONE. DR PATEL AWARE
== END 2019-04-23 21:35 | disposition home or self-care (01) ==
LOC: ER 18:11
DX: M75.101 Unspecified rotator cuff tear or rupture of right shoulder, not specified as traumatic (principal); X50.0XXA Overexertion from strenuous movement or load, initial encounter; Y92.008 Other place in unspecified non-institutional (private) residence as the place of occurrence of the external cause; I10 Essential (primary) hypertension; I25.2 Old myocardial infarction; Z86.73 Personal history of transient ischemic attack (TIA), and cerebral infarction without residual deficits; Z95.1 Presence of aortocoronary bypass graft; Z95.5 Presence of coronary angioplasty implant and graft
CPT/HCPCS: 36415; 80053; 85025; 85610; 85730; 99283

== ENCOUNTER → 2020-03-12 | Outpatient (CLI) | payer BC ==
--- NOTE | 2020-03-12 11:31 | Diagnostic Imaging Report ---
CT LUMBAR SPINE WO HISTORY: Low back pain and left hip and leg pain COMPARISON: CTA of the abdomen/pelvis 07/12/2018 TECHNIQUE: Axial CT images of the lumbar spine were obtained without contrast. Coronal and sagittal reconstructions obtained from the axial data. One or more of the following dose reduction techniques were used: Automated exposure control, adjustment of the mA and/or kV according to patient size, and/or utilization of iterative reconstruction technique. DISCUSSION: There are 5 nonrib-bearing lumbar vertebral bodies. Lumbar lordosis is preserved. Subtle lumbar dextroscoliosis is centered at L3. There is no significant subluxation. Mild bone demineralization limits evaluation. No definite acute fracture or compression deformity is seen. Chronic bilateral L5 pars defects are present without spondylolisthesis. Bilateral chronic segmented transverse processes may be congenital and/or from remote trauma. No gross spinal canal mass is seen. The paravertebral and paraspinal soft tissues are unremarkable. Multilevel spondylosis is advanced at L2-L3 and L3-L4. Mild bilateral sacroiliac degenerative changes are present as well. L1-L2: Disc bulge without gross canal or foraminal stenosis. L2-L3: Mild right foraminal stenosis due to disc bulge and facet arthrosis. No gross canal or left foraminal stenosis. L3-L4: At least mild to moderate canal stenosis due to disc bulge and ligamentum flavum thickening. Mild right and moderate left foraminal stenoses due to disc bulge and facet arthrosis. L4-L5: No gross canal or foraminal stenosis. L5-S1: Mild to moderate bilateral foraminal stenoses due to disc bulge and facet arthrosis. No gross canal stenosis. Partially imaged small hepatic and splenic calcifications are likely granulomas. Right-sided renal cysts are better seen on prior CTA. Abdominal infrarenal aortic aneurysm status post stenting is grossly unchanged. IMPRESSION: 1. No acute osseous abnormalities. 2. Multilevel spondylosis, advanced at L2-L3 and L3-L4, with subtle lumbar dextroscoliosis. 3. At least mild to moderate degenerative canal stenosis at L3-L4. 4. Multilevel bilateral degenerative foraminal stenoses - moderate on the left at L3-L4. 5. Chronic bilateral L5 pars defects without spondylolisthesis. Signed by: Dr. Karl Eastman M.D. on 03/12/2020 11:27 AM
== END ==
LOC: CT 07:52
PROVIDERS: ATTEND Family Medicine
DX: M48.061 Spinal stenosis, lumbar region without neurogenic claudication (principal); M48.062 Spinal stenosis, lumbar region with neurogenic claudication; S33.5XXA Sprain of ligaments of lumbar spine, initial encounter
CPT/HCPCS: 72131

== ENCOUNTER → 2021-05-13 | Outpatient (CLI) | payer BC ==
[2021-05-13 16:22] LABS: CREATININE, SERUM 1.9 mg/dL (0.72-1.25)
== END ==
LOC: CT 15:28
PROVIDERS: ATTEND Family Medicine
DX: R91.1 Solitary pulmonary nodule (principal)
CPT/HCPCS: 36415; 71250; 82565; 84520

== ENCOUNTER → 2021-06-19 | Outpatient (CLI) | payer OTHER, MEDICARE | LOC: CT 14:17 | PROVIDERS: ATTEND Family Medicine | DX: J06.9 Acute upper respiratory infection, unspecified (principal); R06.02 Shortness of breath | CPT/HCPCS: 71250 ==

== ENCOUNTER 2023-03-27 14:49 | Inpatient (IN) | payer OTHER, MEDICARE ==
[~2023-03-27] VITALS: Ht 172.7 cm; Wt 80.5 kg
[~2023-03-27 14:49] MED LIST changes: +ENTRESTO 24 MG1 EACH PO; +METFORMIN HCL500 MG PO; +TRICOR145 MG PO
[2023-03-27] MEDS ORDERED: CARVEDILOL3.125 MG PO (15:20)
[2023-03-27] MEDS ORDERED: CRESTOR10 MG PO (15:20)
[2023-03-27] MEDS ORDERED: ASPIRIN EC81 MG PO (15:20)
[2023-03-27] MEDS ORDERED: Vancomycin IV 1 GM VIAL ONE (15:44)
[2023-03-27] MEDS ORDERED: SODIUM CHLORIDE 0.9% 250ML 250 ML ONE (15:44)
[2023-03-27] MEDS ORDERED: ONDANSETRON HCL INJ 2MG/ML 2ML 2 MG/ML VIAL IV PRN (15:45)
[2023-03-27] MEDS ORDERED: Vancomycin IV 1 GM in SODIUM CHLORIDE 0.9% 250ML 250 ML IV ONE (15:45)
[2023-03-27] MEDS ORDERED: Morphine 2mg Syringe 2 MG/ML SYR IV PRN (15:45)
[2023-03-27] MEDS ORDERED: CEFTRIAXONE 1 GM VIAL IM ONE (15:45)
[2023-03-27] MEDS ORDERED: LACTATED RINGER'S 1,000 ML IV ONE (16:30)
[2023-03-27 21:06] VITALS: BP 122/65; PULSE 70; RESP 18; TEMP 98.3; O2SAT 98
[2023-03-28] VITALS (8 sets, daily range): BP systolic 106–151; BP diastolic 60–92; PULSE 63–81; RESP 13–18; TEMP 97.3–98.4; O2SAT 97–100
[2023-03-28] MEDS: Morphine 4mg INJECTION 4 MG/ML INJ IV PRN (00:38)
[2023-03-28] MEDS: Vancomycin IV 1 GM in SODIUM CHLORIDE 0.9% 250ML 250 ML IV SCH ×2 (04:45→16:50)
[2023-03-28] MEDS: DEXTROSE 50% SYRINGE 50 ML IV ONE ×2 (08:15→11:22)
[2023-03-28 08:45] LABS: BASOPHILS % 0.3 % (0.0-1.0); EOSINOPHILS % 0.2 % (0.0-6.0); HEMATOCRIT 33.1 % (38.2-49.6); HEMOGLOBIN 11.4 g/dL (14.0-18.0); LYMPHOCYTES % 6.2 % (18.0-39.1); MEAN CORPUSCULAR HEMOGLOBIN 27.8 pg (28-32); MEAN CORPUSCULAR HGB CONC 34.4 g/dL (31-35); MEAN CORPUSCULAR VOLUME 80.7 fL (81-99); MONOCYTES # (AUTO) 0.6 (0.2-0.8); MONOCYTES % 4.1 % (4.4-11.3); NEUTROPHILS # (AUTO) 13.5 (2.1-6.9); NEUTROPHILS % 86.4 % (38.7-80.0); PLATELET COUNT 152 x10e3/uL (140-360); RED CELL DISTRIBUTION WIDTH 16.7 % (11.7-14.4); WHITE BLOOD COUNT 15.64 x10e3/uL (4.8-10.8)
[2023-03-28 09:09] LABS: ANION GAP 13.7 mmol/L (8-16); CREATININE, SERUM 2.59 mg/dL (0.72-1.25); POTASSIUM 3.7 mmol/L (3.5-5.1)
[2023-03-28] MEDS ORDERED: SODIUM CHLORIDE 0.9% 250ML 250 ML ONE (09:38)
[2023-03-28 11:16] LABS: PLATELET ESTIMATE ADEQUATE; PLATELET MORPHOLOGY COMMENT NORMAL
[2023-03-28] MEDS ORDERED: DEXTROSE 50% SYRINGE 50 ML IV ONE (11:20)
[2023-03-29] VITALS (8 sets, daily range): BP systolic 156–173; BP diastolic 72–85; PULSE 67–80; RESP 18–20; TEMP 97.9–98.7; O2SAT 95–99
[2023-03-29] MEDS: Morphine 4mg INJECTION 4 MG/ML INJ IV PRN ×2 (05:44→15:19)
[2023-03-29] MEDS: Vancomycin IV 1 GM in SODIUM CHLORIDE 0.9% 250ML 250 ML IV SCH ×2 (05:44→16:00)
[2023-03-29] MEDS ORDERED: ZOLPIDEM TARTRATE 10 MG TAB PO PRN (08:00)
[2023-03-29] MEDS: CARVEDILOL 3.125 MG TAB PO SCH ×2 (09:13→17:32)
[2023-03-29] MEDS: AMLODIPINE BESYLATE 10 MG TAB PO SCH (09:14)
[2023-03-29] MEDS: GABAPENTIN 300 MG CAP PO SCH (09:14)
[2023-03-29] MEDS: ALLOPURINOL 300 MG TAB PO SCH (09:14)
[2023-03-29] MEDS: METOPROLOL SUCCINATE 50 MG TAB XL PO SCH ×2 (09:14→17:32)
[2023-03-29] MEDS: RIVAROXABAN 15 MG TABLET PO SCH (09:14)
[2023-03-29] MEDS: TAMSULOSIN HCL 0.4 MG CAP PO SCH (09:20)
[2023-03-29] MEDS: METFORMIN HCL 500 MG TAB PO SCH (09:21)
[2023-03-29 09:26] LABS: BASOPHILS % 0.3 % (0.0-1.0); EOSINOPHILS # (AUTO) 0.1 (0.0-0.4); EOSINOPHILS % 0.6 % (0.0-6.0); HEMATOCRIT 35.4 % (38.2-49.6); HEMOGLOBIN 11.9 g/dL (14.0-18.0); LYMPHOCYTES % 7.4 % (18.0-39.1); MEAN CORPUSCULAR HEMOGLOBIN 27.7 pg (28-32); MEAN CORPUSCULAR HGB CONC 33.6 g/dL (31-35); MEAN CORPUSCULAR VOLUME 82.5 fL (81-99); MONOCYTES # (AUTO) 0.8 (0.2-0.8); MONOCYTES % 6.2 % (4.4-11.3); NEUTROPHILS # (AUTO) 11.2 (2.1-6.9); NEUTROPHILS % 84.9 % (38.7-80.0); PLATELET COUNT 168 x10e3/uL (140-360); RED BLOOD COUNT 4.29 x10e6/uL (4.3-5.7); RED CELL DISTRIBUTION WIDTH 17.1 % (11.7-14.4); WHITE BLOOD COUNT 13.18 x10e3/uL (4.8-10.8)
[2023-03-29 09:52] LABS: ANION GAP 11.9 mmol/L (8-16); CALCIUM 9.6 mg/dL (8.4-10.2); CREATININE, SERUM 2.05 mg/dL (0.72-1.25); POTASSIUM 4.9 mmol/L (3.5-5.1)
[2023-03-29] MEDS ORDERED: ONDANSETRON HCL 4 MG ORAL DISINTEGRATING TAB PO PRN (13:00)
[2023-03-29] MEDS: GLIMEPIRIDE 2 MG TAB PO SCH (20:36)
[2023-03-30] VITALS (10 sets, daily range): BP systolic 143–177; BP diastolic 65–86; PULSE 72–109; RESP 16–21; TEMP 97.7–98.4; O2SAT 95–100
[2023-03-30] MEDS: GABAPENTIN 300 MG CAP PO SCH (09:25)
[2023-03-30] MEDS: METFORMIN HCL 500 MG TAB PO SCH (09:26)
[2023-03-30] MEDS: TAMSULOSIN HCL 0.4 MG CAP PO SCH (09:26)
[2023-03-30] MEDS: RIVAROXABAN 15 MG TABLET PO SCH (09:26)
[2023-03-30] MEDS: METOPROLOL SUCCINATE 50 MG TAB XL PO SCH ×2 (09:27→16:21)
[2023-03-30] MEDS: ALLOPURINOL 300 MG TAB PO SCH (09:27)
[2023-03-30] MEDS: CARVEDILOL 3.125 MG TAB PO SCH ×2 (09:28→16:21)
[2023-03-30] MEDS: AMLODIPINE BESYLATE 10 MG TAB PO SCH (09:31)
[2023-03-30] MEDS: Vancomycin IV 1 GM in SODIUM CHLORIDE 0.9% 250ML 250 ML IV SCH (10:17)
[2023-03-30] MEDS: Morphine 4mg INJECTION 4 MG/ML INJ IV PRN ×2 (12:12→21:36)
[2023-03-30] MEDS ORDERED: SODIUM CHLORIDE 0.9% 1000ML 1,000 ML IV SCH (16:00)
[2023-03-30] MEDS: GLIMEPIRIDE 2 MG TAB PO SCH (21:15)
[2023-03-31] VITALS: BP 131/73; PULSE 57; RESP 20; TEMP 97.8; O2SAT 99
[2023-03-31 04:00] VITALS: BP 182/74; PULSE 70; RESP 18; TEMP 97.9; O2SAT 97
[2023-03-31] MEDS: Morphine 4mg INJECTION 4 MG/ML INJ IV PRN (04:59)
[2023-03-31 05:27] LABS: BASOPHILS # (AUTO) 0.1 (0.0-0.1); BASOPHILS % 0.9 % (0.0-1.0); EOSINOPHILS # (AUTO) 0.1 (0.0-0.4); EOSINOPHILS % 1.7 % (0.0-6.0); HEMATOCRIT 33.3 % (38.2-49.6); LYMPHOCYTES # (AUTO) 1.4 (1.0-3.2); LYMPHOCYTES % 16.8 % (18.0-39.1); MEAN CORPUSCULAR HEMOGLOBIN 27.9 pg (28-32); MEAN CORPUSCULAR VOLUME 84.5 fL (81-99); MONOCYTES # (AUTO) 0.9 (0.2-0.8); MONOCYTES % 11.1 % (4.4-11.3); NEUTROPHILS # (AUTO) 5.3 (2.1-6.9); PLATELET COUNT 152 x10e3/uL (140-360); RED BLOOD COUNT 3.94 x10e6/uL (4.3-5.7); RED CELL DISTRIBUTION WIDTH 16.7 % (11.7-14.4); WHITE BLOOD COUNT 8.21 x10e3/uL (4.8-10.8)
[2023-03-31 06:02] LABS: CLARITY,URINE CLEAR (CLEAR); COLOR,URINE YELLOW (YELLOW); KETONES,URINE NEGATIVE (NEGATIVE); LEUKOCYTE ESTERASE ,URINE NEGATIVE (NEGATIVE); NITRITE,URINE NEGATIVE (NEGATIVE); PROTEIN,URINE DIPSTICK NEGATIVE (NEGATIVE); URINE UROBILINOGEN 0.2 mg/dL (0.2 - 1)
[2023-03-31 06:12] LABS: BACTERIA,URINE FEW /HPF; EPITHELIAL CELLS,URINE RARE /LPF; WBC,URINE (MAN) 0-5 /HPF (0-5)
[2023-03-31 06:21] LABS: ALBUMIN 2.6 g/dL (3.5-5.0); ALBUMIN/GLOBULIN RATIO 0.8 (0.8-2.0); ANION GAP 12.6 mmol/L (8-16); CALCIUM 9.6 mg/dL (8.4-10.2); CREATININE, SERUM 1.6 mg/dL (0.72-1.25); MAGNESIUM 1.9 MG/DL (1.3-2.1); PHOSPHORUS 3.9 MG/DL (2.3-4.7); POTASSIUM 4.6 mmol/L (3.5-5.1)
[2023-03-31 06:59] VITALS: PULSE 78; RESP 16; O2SAT 97
[2023-03-31 08:00] VITALS: BP 180/68; PULSE 70; RESP 19; TEMP 98.3; O2SAT 100
[2023-03-31 09:00] VITALS: BP 180/68; PULSE 70; RESP 19; TEMP 98.3; O2SAT 100
[2023-03-31] MEDS ORDERED: ALLOPURINOL 300 MG TAB PO SCH (09:00)
[2023-03-31] MEDS ORDERED: ULTRAM 50MG50 MG PO (09:20)
[2023-03-31] MEDS ORDERED: ALLOPURINOL300 MG PO (09:20)
[2023-03-31] MEDS ORDERED: CIPRO250 MG PO (09:20)
[2023-03-31] MEDS ORDERED: ONDANSETRON ODT4 MG PO (09:26)
[2023-03-31] MEDS: Vancomycin IV 1 GM in SODIUM CHLORIDE 0.9% 250ML 250 ML IV SCH (09:34)
[2023-03-31] MEDS: RIVAROXABAN 15 MG TABLET PO SCH (09:35)
[2023-03-31] MEDS: GABAPENTIN 300 MG CAP PO SCH (09:36)
[2023-03-31] MEDS: METOPROLOL SUCCINATE 50 MG TAB XL PO SCH (09:36)
[2023-03-31] MEDS: METFORMIN HCL 500 MG TAB PO SCH (09:36)
[2023-03-31] MEDS: TAMSULOSIN HCL 0.4 MG CAP PO SCH (09:37)
[2023-03-31] MEDS: AMLODIPINE BESYLATE 10 MG TAB PO SCH (09:37)
[2023-03-31] MEDS: CARVEDILOL 3.125 MG TAB PO SCH (09:38)
[2023-03-31 10:54] VITALS: BP 154/61; PULSE 70; RESP 20; TEMP 97.9; O2SAT 98
== END 2023-03-31 14:14 | disposition home or self-care (01) | DRG 603 ==
LOC: FSED 14:55 → ERHOLD 15:43 → MED/SURG2 18:34
PROVIDERS: ADMIT Internal Medicine; ATTEND Internal Medicine
DX: L03.114 Cellulitis of left upper limb (principal); N17.9 Acute kidney failure, unspecified; I13.0 Hypertensive heart and chronic kidney disease with heart failure and stage 1 through stage 4 chronic kidney disease, or unspecified chronic kidney disease; W19.XXXA Unspecified fall, initial encounter; Y92.512 Supermarket, store or market as the place of occurrence of the external cause; N40.0 Benign prostatic hyperplasia without lower urinary tract symptoms; M10.9 Gout, unspecified; I25.10 Atherosclerotic heart disease of native coronary artery without angina pectoris; F17.200 Nicotine dependence, unspecified, uncomplicated; E78.2 Mixed hyperlipidemia; K21.9 Gastro-esophageal reflux disease without esophagitis; E11.59 Type 2 diabetes mellitus with other circulatory complications; I12.9 Hypertensive chronic kidney disease with stage 1 through stage 4 chronic kidney disease, or unspecified chronic kidney disease; E11.22 Type 2 diabetes mellitus with diabetic chronic kidney disease; N18.30 Chronic kidney disease, stage 3 unspecified; M19.90 Unspecified osteoarthritis, unspecified site; E11.649 Type 2 diabetes mellitus with hypoglycemia without coma; I48.0 Paroxysmal atrial fibrillation; D72.829 Elevated white blood cell count, unspecified; I50.9 Heart failure, unspecified; Z95.2 Presence of prosthetic heart valve; Z79.02 Long term (current) use of antithrombotics/antiplatelets; Z95.810 Presence of automatic (implantable) cardiac defibrillator; Z95.1 Presence of aortocoronary bypass graft; Z95.5 Presence of coronary angioplasty implant and graft; Z79.82 Long term (current) use of aspirin; Z79.01 Long term (current) use of anticoagulants; Z79.899 Other long term (current) drug therapy
CPT/HCPCS: 0223U; 36415; 76770; 80048; 80053; 80202; 81001; 82948; 83735; 84100; 85025; 87040; 93931; 93971; 94799; 99284; J0696; J2270; J7030; J7050; J7799; Q0162